=== PATIENT | male | born 1970 | race Caucasian/White ===

== ENCOUNTER 2020-10-27 04:11 | Outpatient (CLI) | payer OTHER, SELFPAY ==
[2020-10-27 16:48] LABS: ALT 37 U/L (16-63); AST 23 U/L (15-37); Albumin 4.1 g/dL (3.4-5.0); Alkaline Phosphatase 65 U/L (46-116); Anion Gap 8.4 mmol/L (3-11); BUN 20 mg/dL (7-18); Bilirubin, Total 0.2 mg/dL (0.2-1.0); CO2 28.6 mmol/L (21.0-32.0); Calculated LDL 101 mg/dL (<100); Chloride 103 mmol/L (98-107); Cholesterol 181 mg/dL (<200); Glucose 109 mg/dL (74-106); HDL Cholesterol 56 mg/dL (40-60); Potassium 3.9 mmol/L (3.5-5.1); Sodium 140 mmol/L (136-145); Total Protein 7.1 g/dL (6.4-8.2); Triglyceride 120 mg/dL (<150)
[2020-10-28 11:13] LABS: Lyme Ab w Rflx to Lyme Confirm Negative (Negative)
[2020-10-29 18:41] LABS: Anaplasma phagocytophilum Negative (Negative); B. miyamotoi PCR Negative (Negative); Babesia divergens/MO-1 Negative (Negative); Babesia duncani Negative (Negative); Babesia microti Negative (Negative); Ehrlichia chaffeensis Negative (Negative); Ehrlichia ewingii/canis Negative (Negative); Ehrlichia muris eauclairensis Negative (Negative)
== END 2020-10-27 04:12 | disposition home or self-care (01) ==
LOC: LBO 04:11
PROVIDERS: PCP Nurse Practitioner Family; Visit Provider Nurse Practitioner Family
DX: M25.59 Pain in other specified joint (principal); M25.571 Pain in right ankle and joints of right foot; Z13.220 Encounter for screening for lipoid disorders; Z13.1 Encounter for screening for diabetes mellitus
CPT/HCPCS: 36415; 80053; 80061; 87798; 83036; 86618

== ENCOUNTER 2021-03-30 06:26 | Emergency (ER) | payer OTHER, SELFPAY ==
[2021-03-30 06:31] VITALS: BP 132/83; PULSE 84; RESP 18; TEMP 37.2; O2SAT 96
--- NOTE | 2021-03-30 06:41 | ED.GENADUL_ITS ---
Discharge Plan Disposition Patient Disposition: HOME Condition: Stable Discharge Details Clinical Impression: Cough, Upper respiratory infection Primary Care Provider: Ciro Epps ED Provider: Andrea Mitchell Home Meds and New Rx's Prescriptions: New amoxicillin-pot clavulanate [Augmentin] 875-125 mg tablet 1 tab PO BID Qty: 14 RF: 0 Discharge Instructions Instructions: Upper Respiratory Infection (ED) Additional Instructions: continue to drink plenty of fluids you can take 1000mg tylenol and 600mg ibuprofen efvery 6 hours as needed and you can also try over the counter mucinex and benadryl follow up with your primary care provider within a week if symptoms continue if you feel more ill, have worsening trouble breathing or worsening weakness return to the emergency department Stand Alone Forms: PENDING COVID-19 TESTING Medical Decision Making 50 yo male with no chronic medical problems who denies smoking, alcohol or drug use comes in with cough and facial pressure for over a week. He states when this started he had subjective fevers and chills and had a negative covid pcr test. Fever he felt has resolved but he still has a dry cough and facial pressure. No recent travel, no rashes, denies any gi symptoms. He is stable on arrival and appears well speaking in full sentences. He has clear lungs bilaterally, no murmurs, no rashes or lesions, no meninismus, soft nontender abdomen. Does have some tenderness with percussion over the maxillary sinuses. His symptoms seem consistent with either uri vs bronchitis vs sinusitis. Given over a week of symptoms will start augmentin and also obtain another covid test. He has clear lungs, no hypoxia and well appearance so doubt pneumonia or sepsis and do not feel labs or imaging indicated. He is stable for outpatient management, advised to f/u with pcp and return precautions given Differential Diagnosis Differential Diagnosis: sinusitis, cap, bronchitis, covid HPI General Mode of arrival: ambulatory . Date/Time Provider Initiated Documentation: 03/30/21 06:27 . Limitations to Documentation: no limitations . Information obtained by: patient . History of Present Illness 50 year old M presents to the emergency department with the chief complaint of cough, described as moderate, Patient started experiencing this day(s) (8) and it has been intermittent. No relieving factors improve symptom(s), No exacerbating factors reported . Patient notes denies nausea/vomiting and rash. Patient did receive the following treatments prior to arrival, none Related Data Home Medications Medication Instructions Recorded Confirmed amoxicillin-pot clavulanate 1 tab PO BID #14 tab 03/30/21 [Augmentin] Previous Rx's Medication Instructions Recorded amoxicillin-pot clavulanate 1 tab PO BID #14 tab 03/30/21 [Augmentin] Allergies Allergy/AdvReac Type Severity Reaction Status Date / Time shrimp Allergy Severe numbness Verified 02/11/21 14:42 in tongue and lips, nausea General Stated Complaint: RespSymp MONSERRAT: 4 Review of Systems All systems reviewed & are unremarkable except as noted in HPI and below Constitutional Constitutional: Denies weakness Cardiovascular Cardiovascular: Denies chest pain Gastrointestinal Gastrointestinal: Denies abdominal pain, Denies nausea and Denies vomiting Musculoskeletal Musculoskeletal: Denies joint swelling Neurologic Neurologic: Denies weakness PFSH All Active Problems (Updated 03/30/21 @ 06:47 by Andrea Mitchell MD) Cough (Acute) Upper respiratory infection (Acute) Colon cancer screening (Acute) Thumb pain (Acute) Plantar fasciitis, bilateral (Acute) Lower back pain (Acute) Angina bullosa hemorrhagica (Chronic) Surgical History KNEE SURGERY (~2003) Family History Mother Essential hypertension Hyperlipidemia Neoplasm Breast Father Essential hypertension Hyperlipidemia Sister Substance abuse Grandfather No problems noted. Grandfather Essential hypertension Heart disease Hyperlipidemia Grandmother No problems noted. Grandmother No problems noted. Social History Smoking/Tobacco Use Status: Never Smoking risk assessment performed?: Yes Alcohol Intake: never Drug use: Never Substance use type: does not use Do you feel safe at home: Yes Do you feel safe in your relationship?: Yes Exam Const General: no acute distress Orientation: alert HENKS Head: normal to inspection Ears: external ears normal General nose exam: external nose normal Mouth: moist mucous membranes Eyes General: appearance normal, both eyes and all related structures Neck Neck: normal visual inspection Resp Effort & Inspection: normal respiratory effort and able to speak in complete sentences Cardio Rate: regular rate GI Palpation: soft and nontender Skin General skin exam: no rashes or lesions noted Neuro General: patient alert and patient oriented x3 Extrem General: normal to inspection Psych Mental Status: mental status grossly normal Course Vital Signs Vital signs: Vital Signs Temperature 37.2 C 03/30/21 06:31 Pulse 84 03/30/21 06:31 Respiratory Rate 18 03/30/21 06:31 Blood Pressure 132/83 03/30/21 06:31 Pulse Oximetry 96 03/30/21 06:31 Temperature 37.2 C 03/30/21 06:31 Temperature Source Temporal Artery Scan 03/30/21 06:31 Pulse 84 03/30/21 06:31 Respiratory Rate 18 03/30/21 06:31 Respiratory Effort Short of Breath 03/30/21 06:34 Respiratory Depth Normal 03/30/21 06:34 Blood Pressure 132/83 03/30/21 06:31 Blood Pressure Position Supine 03/30/21 06:31 Pulse Oximetry 96 03/30/21 06:31 Oxygen Delivery Method Room Air 03/30/21 06:31 Oxygen Flow Rate 0 03/30/21 06:31 Pain Level 2 03/30/21 06:31
[2021-03-30] MEDS: Amoxicillin 875/Clav. 125 TAB PO (06:50)
[2021-03-31 15:59] LABS: COVID-19 RT-PCR UVMMC Result Positive (Negative)
--- NOTE | 2021-03-31 16:26 | W.ED.FU ---
Pt called on number listed and message left to call the ED for his Covid results. His Covid test resulted positive today. He was advised to call the ED for his results.
== END 2021-03-30 06:54 | disposition home or self-care (01) ==
PROVIDERS: Emergency Provider Emergency Medicine; PCP Nurse Practitioner Family
DX: U07.1 COVID-19 (principal)
CPT/HCPCS: 99283; U0003

== ENCOUNTER 2021-04-01 16:39 | Inpatient (IN) | payer OTHER, SELFPAY ==
[2021-04-01] VITALS (51 sets, daily range): BP systolic 95–127; BP diastolic 46–76; PULSE 68–127; RESP 9–33; TEMP 36.4–38.2; O2SAT 87–95
--- NOTE | 2021-04-01 16:30 | RT.EKG_ITS ---
APPROVED REPORT Exam: Resting ECG Reason for Exam: SOB Patient Location: E HR:109 bpm ECG Measurements Heart Rate 109 AXIS RI 120 P 61 QRSd 82 QRS 36 QT 303 T 30 QTc 408 Conclusion Sinus tachycardia...rate> 99. Sinus. No STEMI. I have reviewed and interpreted ECG and agree with software generated interpretation.
--- NOTE | 2021-04-01 17:09 | W.ED.GENAD ---
Discharge Plan Disposition Patient Disposition: [facility] INPATIENT Condition: Stable Discharge Details Clinical Impression: Pneumonia due to COVID-19 virus, Hypoxia, Requires supplemental oxygen Admit Date/Time: 04/01/21 19:37 Admit Provider: Andres Hummel Attending Provider: Andres Hummel Primary Care Provider: Ciro Epps ED Provider: Dunia Sellers Discharge Data Discharge Date/Time-TO BE ENTERED AT DEPARTURE: 04/01/21 21:05 Medical Decision Making 50 year-old male who is unvaccinated for Covid diagnosed with Covid yesterday presents with 1 week of nausea, headache, cough, fatigue now with worsening shortness of breath since yesterday. Heart rate 110s. Temperature 100.8 and oxygen saturation 87% on room air on arrival. Patient appears to have mild labored breathing and speaking in 3-4 word sentences. Oxygen increased to 92% on 1 L. Patient has scattered wheezing and minimal rhonchi. Consider Covid pneumonia. Will likely plan for admission as he is requiring supplemental oxygen. Will start with neb treatment, IV steroids, fluids, Toradol and obtain screening labs of portable chest x-ray. Labs and imaging reviewed. White blood cell count 9. Sodium 134. Troponin negative. Chest x-ray notes bilateral patchy airspace opacities, worse in the right lung base. Will treat for possible bacterial pneumonia as he was noted to have a fever with more significant consolidation in the right lung base. Patient reassessed and he feels that he is breathing better with supplemental oxygen but still with some headache. He appears nontoxic and no meningeal signs. Oxygen saturation 92% on 1 L. Will admit for observation and IV antiviral treatment, IV antibiotics, and need for supplemental oxygen in the setting of COVID-19 and pneumonia. Case discussed with hospitalist who accepts patient for admission. Medical Records Medical records reviewed: Yes I reviewed the patient's medical records. Imaging Data Radiologic Study: Radiologist's impression: XR Chest Exam date and time: 04/01/2021 5:29 PM Age: 50 years old Clinical indication: Shortness of breath TECHNIQUE: Imaging protocol: XR of the chest. Views: 1 view. COMPARISON: CR LEFT SHOULDER COMPLETE 09/07/2017 3:19 PM FINDINGS: Lungs: Patchy peripheral airspace opacities in the right lung base. This is seen to a lesser extent in the left lung as well. Pleural spaces: Unremarkable. No pleural effusion. No pneumothorax. Heart/Mediastinum: Unremarkable. No cardiomegaly. Bones/joints: Unremarkable. IMPRESSION: Patchy airspace opacities. This consistent with pneumonia in the correct clinical setting. Covid pneumonia is not excluded. Lab Data Lab results reviewed: Yes I reviewed the patient's lab results. Labs: Laboratory Tests Range/Units 04/01/21 04/01/21 16:50 16:50 WBC (4.4-10.8) 10^3/uL 9.16 RBC (4.36-5.78) 10^6/uL 4.68 Hgb (13.5-17.5) g/dL 14.6 Hct (40.0-50.0) % 43.2 MCV (80-95) fL 92.3 MCH (27.0-33.0) pg 31.2 MCHC (32.0-36.0) % 33.8 RDW (11.8-14.1) % 11.5 L Plt Count (130-400) 10^3/uL 139 MPV (8.0-11.0) fL 10.9 Immature Gran % 0.7 Neutrophils % 91.0 Lymphocytes % 5.3 Monocytes % 2.9 Eosinophils % 0.0 Basophils % 0.1 Nucleated RBC % % 0 Absolute Neutrophils (1.2-6.7) 10^3/uL 8.33 H Absolute Lymphocytes (1.2-3.4) 10^3/uL 0.49 L Absolute Monocytes (0.1-0.8) 10^3/uL 0.27 Absolute Eosinophils (0.0-0.7) 10^3/uL 0.00 Absolute Basophils (0.0-0.2) 10^3/uL 0.01 Sodium (136-145) mmol/L 134 L Potassium (3.5-5.1) mmol/L 3.7 Chloride (98-107) mmol/L 99 Carbon Dioxide (21.0-32.0) mmol/L 24.9 Anion Gap (3-11) mmol/L 10.1 BUN (7-18) mg/dL 13 Creatinine (0.70-1.30) mg/dL 1.2 Estimated GFR/1.73 m2 (mL/min/1.73m2) >= 60.00 Glucose (74-106) mg/dL 103 Calcium (8.5-10.1) mg/dL 8.1 L Magnesium (1.8-2.4) mg/dL 1.7 L Total Bilirubin (0.2-1.0) mg/dL 0.3 AST (15-37) U/L 31 ALT (16-63) U/L 28 Alkaline Phosphatase (46-116) U/L 49 Troponin I (<or=60) ng/L < 50 Total Protein (6.4-8.2) g/dL 7.3 Albumin (3.4-5.0) g/dL 3.3 L ECG Data Attestation: I personally reviewed and interpreted this ECG (s) as follows: Interpretation: Rate of 109, sinus, no acute ST elevation or depression. KS 120. QTc 408. HPI General Mode of arrival: ambulatory. Date/Time Provider Initiated Documentation: 04/01/21 17:07. Limitations to Documentation: no limitations. Information obtained by: patient. HPI Narrative: Patient is a 50-year-old male with no significant past medical history diagnosed with Covid yesterday presents for fatigue and headache for the past week, now with worsening nausea, shortness of breath and body aches since yesterday. He has felt warm but denies any known fever. He also admits to mainly a dry cough, some loss of sense of smell and taste and decreased appetite. 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 Patient states he is not vaccinated as he thought he could obtain natural antibodies from catching Covid at some point. He states he has a lot of unvaccinated friends who have been diagnosed with covid and did fine with it but he states that he has never felt as bad as I do now and I didn't know it would be this bad. He took Tylenol earlier today. Related Data Home Medications Medication Instructions Recorded Confirmed amoxicillin-pot clavulanate 1 tab PO BID #14 tab 03/30/21 04/01/21 [Augmentin] acetaminophen 650 mg PO PRN PRN 04/01/21 04/01/21 ibuprofen 400 mg PO PRN PRN 04/01/21 04/01/21 Previous Rx's Medication Instructions Recorded amoxicillin-pot clavulanate 1 tab PO BID #14 tab 03/30/21 [Augmentin] Allergies Allergy/AdvReac Type Severity Reaction Status Date / Time shrimp Allergy Severe numbness Verified 04/01/21 16:51 in tongue and lips, nausea General Stated Complaint: RespSymp MONSERRAT: 2 Review of Systems All systems reviewed & are unremarkable except as noted in HPI and below Constitutional Constitutional: Reports as per HPI, Reports body ache(s), Denies chills, Reports fatigue, Denies fever(s), Reports headache(s), Reports malaise and Reports poor appetite Eyes Eyes: Denies blurry vision ENT Ears, Nose, Mouth, and Throat: Denies dizziness, Reports headache(s), Denies sore throat and Denies throat swelling Cardiovascular Cardiovascular: Denies chest pain and Reports dyspnea Respiratory Respiratory: Reports cough and Reports dyspnea Gastrointestinal Gastrointestinal: Denies abdominal pain, Denies diarrhea, Reports nausea and Denies vomiting Genitourinary Genitourinary: Denies hematuria and Denies dysuria Musculoskeletal Musculoskeletal: Denies back pain and Denies numbness Integumentary/Breasts Skin/Breast: Denies lesions and Denies rash Neurologic Neurologic: Denies dizziness, Reports headache(s), Denies localized weakness and Denies numbness Endocrine Endocrine: Reports fatigue Allergic/Immunologic Allergic/Immunologic: Denies throat swelling PFSH All Active Problems (Updated 04/02/21 @ 08:21 by Dunia Sellers DO) Pneumonia due to COVID-19 virus (Acute) Hypoxia (Acute) Requires supplemental oxygen (Acute) Cough (Acute) Upper respiratory infection (Acute) Plantar fasciitis, bilateral (Acute) Lower back pain (Acute) Angina bullosa hemorrhagica (Chronic) Surgical History KNEE SURGERY (~2003) Family History Mother Essential hypertension Hyperlipidemia Neoplasm Breast Father Essential hypertension Hyperlipidemia Multiple myeloma Sister Substance abuse Grandfather Essential hypertension Heart disease Hyperlipidemia Social History Smoking/Tobacco Use Status: Former Tobacco Use Smoking risk assessment performed?: Yes Alcohol Intake: never Drug use: Never Substance use type: does not use Do you feel safe at home: Yes Do you feel safe in your relationship?: Yes Exam Const General: cooperative and no acute distress HENMT Head: normal to inspection Face and sinus: normal facial exam Eyes General: appearance normal, both eyes and all related structures EOM: EOM intact bilaterally Neck Neck: normal visual inspection and No submandibular swelling Lymphatic: no lymphadenopathy noted Chest Chest: normal inspection of the chest and no tenderness Resp Effort & Inspection: normal respiratory effort and able to speak in complete sentences Auscultation: rhonchi and wheezes scattered wheezes Cardio Rate: regular rate Rhythm: regular rhythm GI Inspection: normal to inspection Palpation: soft, not firm, not rigid and nontender Auscultation: normal bowel sounds Back/Spine/Pelvis Thoracic/Lumbar Spine: thoracic and lumbar spine normal to inspection Skin General skin exam: no rashes or lesions noted Neuro General: patient alert, patient awake and patient oriented x3 Cognition: normal cognition Speech: speech normal Motor: muscle tone normal throughout Sensory Exam: no sensory deficits noted Extrem General: normal to inspection, full ROM, capillary refill normal, no calf tenderness bilaterally and no edema Psych Appearance: grossly normal Mental Status: mental status grossly normal Speech and Movement: speech and movement normal Affect: normal affect Course Vital Signs Vital signs: Vital Signs Temperature 100.8 F H 04/01/21 16:47 Pulse 110 H 04/01/21 16:47 Respiratory Rate 18 04/01/21 16:47 Blood Pressure 127/72 04/01/21 16:47 Pulse Oximetry 87 L 04/01/21 16:47 Temperature 100.8 F H 04/01/21 16:47 Temperature Source Temporal Artery Scan 04/01/21 16:47 Pulse 111 H 04/01/21 16:48 Pulse 111 H 04/01/21 17:00 Respiratory Rate 24 04/01/21 17:00 Respiratory Effort Incrsd Work of Breathing 04/01/21 17:00 Blood Pressure 127/72 04/01/21 16:48 Blood Pressure Mean 80 04/01/21 16:48 Blood Pressure Position Sitting 04/01/21 16:47 Pulse Oximetry 94 04/01/21 17:00 Oxygen Delivery Method Nasal Cannula 04/01/21 16:58 Oxygen Flow Rate 2 04/01/21 16:58
--- NOTE | 2021-04-01 17:15 | DI.RAD_ITS ---
Exam(s) XR PORTABLE CHEST AP EXAM: XR PORTABLE CHEST AP CLINICAL HISTORY: cough, sob, + covid, r/o acute disease TECHNIQUE: 2D digital imaging was performed of the chest. One image was obtained. An AP view was ob tained. COMPARISON: No priors for comparison. FINDINGS: MEDIASTINUM: Normal. HEART: Normal. PULMONARY VASCULATURE: Normal. LUNGS: There are are bilateral airspace opacities, greater on the right. PLEURAL SPACE: No pleural effusion or pneumothorax. BONE:Within normal limits for the patient's age. OTHER FINDINGS:Normal. IMPRESSION: Bilateral airspace opacities. The findings are consistent with pneumonia. Atypical/viral pneumonia should be considered. COVID-19 pneumonia may have this appearance. DATA REPOSITORY: RADIATION DOSE DELIVERED:
[2021-04-01 17:44] LABS: Abs Immature Grans 0.06 10^3/uL (0.0-0.06); Absolute Basophil Count 0.01 10^3/uL (0.0-0.2); Absolute Lymphocyte Count 0.49 10^3/uL (1.2-3.4); Absolute Monocyte Count 0.27 10^3/uL (0.1-0.8); Absolute Neutrophil Count 8.33 10^3/uL (1.2-6.7); Basophils % 0.1; HCT 43.2 % (40.0-50.0); HGB 14.6 g/dL (13.5-17.5); Immature Grans % 0.7; Lymphocytes % 5.3; MCH 31.2 pg (27.0-33.0); MCHC 33.8 % (32.0-36.0); MCV 92.3 fL (80-95); MPV 10.9 fL (8.0-11.0); Monocytes % 2.9; Nucleated RBC 0 %; Platelet Count 139 10^3/uL (130-400); RBC 4.68 10^6/uL (4.36-5.78); RDW 11.5 % (11.8-14.1); RDW-SD 38.9 fL; WBC 9.16 10^3/uL (4.4-10.8)
[2021-04-01] MEDS: Normal Saline 1,000 ML 1000 ML IV (17:45)
[2021-04-01] MEDS: methylPREDNISolone SUCC 125 MG VIAL IVP (17:48)
[2021-04-01] MEDS: Ketorolac 60 MG/2 ML VIAL IM (17:49)
[2021-04-01] MEDS: Ondansetron 4 MG/2 ML VIAL IVP (17:51)
[2021-04-01] MEDS: Albuterol/Ipratropium 3 ML UPD VIAL UPD (17:52)
--- NOTE | 2021-04-01 18:10 | DI.VRAD_ITS ---
PROCEDURE INFORMATION: Exam: XR Chest Exam date and time: 04/01/2021 5:29 PM Age: 50 years old Clinical indication: Shortness of breath TECHNIQUE: Imaging protocol: XR of the chest. Views: 1 view. COMPARISON: CR LEFT SHOULDER COMPLETE 09/07/2017 3:19 PM FINDINGS: Lungs: Patchy peripheral airspace opacities in the right lung base. This is seen to a lesser extent in the left lung as well. Pleural spaces: Unremarkable. No pleural effusion. No pneumothorax. Heart/Mediastinum: Unremarkable. No cardiomegaly. Bones/joints: Unremarkable. IMPRESSION: Patchy airspace opacities. This consistent with pneumonia in the correct clinical setting. Covid pneumonia is not excluded. Dictated and Authenticated by: Nelson Su MD. Ordering:LOBITO Duque MD
[2021-04-01 18:15] LABS: ALT 28 U/L (16-63); AST 31 U/L (15-37); Albumin 3.3 g/dL (3.4-5.0); Alkaline Phosphatase 49 U/L (46-116); Anion Gap 10.1 mmol/L (3-11); BUN 13 mg/dL (7-18); Bilirubin, Total 0.3 mg/dL (0.2-1.0); CO2 24.9 mmol/L (21.0-32.0); CREATININE 1.2 mg/dL (0.70-1.30); Calcium 8.1 mg/dL (8.5-10.1); Chloride 99 mmol/L (98-107); Glucose 103 mg/dL (74-106); Magnesium 1.7 mg/dL (1.8-2.4); Potassium 3.7 mmol/L (3.5-5.1); Sodium 134 mmol/L (136-145); Total Protein 7.3 g/dL (6.4-8.2); Troponin I < 50 ng/L (<or=60)
--- NOTE | 2021-04-01 20:06 | HPE_ITS ---
Date of service: 04/01/21 Time of Service: 20:06 Assessment and Plan Assessment and plan (1) Pneumonia due to COVID-19 virus: Status: Acute Assessment and plan: hospitalize for hypoxemia and COVID-19 pneumonia; treat w/ Remdesivir and decadron, vitamin C, vitamin D, zinc, atorvastatin, therapeutic lovenox, encourage use of IS, acapella and proning; check serial procalcitonin and if negative x 2 consider dc antibiotics (will cover w/ Ceftriaxone and doxycycline for now). History of Present Illness History of Present Illness Chief Complaint: shortness of breath, fever, COVID-19 positive Narrative: 50 yr old male who who has had fatigue and headaches and myalgias for past 2 weeks and was diagnosed w/ COVID-19 yesterday after initially testing negative last week. He now presents w/ worsening dyspnea, loss of appetite, nausea and worsening fatigue and now a fever 38.2 and non- productive cough. He is not vaccinated. On arrival to the ED he was tachypneic (33 bpm, speaking in 3 to 4 word sentences), tachycardic (110 bmp) and hypoxemic (SPO2 87% on RA). He was given a nebulizer treatment and placed on O2 per 1 lpm NC w/ SPO2 91%. CXR demonstrated diffuce bilateral alveolar infiltrates w/ more consolidation in the RLL. Labs were remarkable for nasal PCR from 2 days ago that is positive for SARS-COV2, CBC today that shows an absolute lymphocytopenia and CMP that is unremarkable. D-dimer, coags, CRP and procalcitonin and ferritin and type and screen, HIV and chronic hepatitis screen have not yet been done. Troponin I was normal and EKG showed sinus tachycardia w/out ischemic changes. Patient was treated w/ iv fluids and solumedrol and will receive paretenteral antibiotics (Ceftriaxone and doxycycline) for empiric treatment for concomitant bacterial pneumonia given the asymmetrical basilar infiltrates. Patient will be admitted to med/surg and started on Remdesivir and decadron (he already had solumedrol 125 mg ivp in the ER which should be more than the equivalent of 23 mg dexamethasone. He currently lives w/ his fiance who currently is not symptomatic. 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 They often do not mask and he says that while he does not recall any recent exposure's to COVID-19 he states that there have been some cases at his employment. Review of Systems All systems reviewed & are unremarkable except as noted in HPI and below Constitutional Constitutional: Reports fatigue, Reports headache(s), Reports lethargy and Reports poor appetite Eyes Eyes: Reports system reviewed and no additional complaints, except as documented ENT Ears, Nose, Mouth, and Throat: Reports system reviewed and no additional complaints, except as documented and Reports headache(s) Cardiovascular Cardiovascular: Reports dyspnea on exertion Respiratory Respiratory: Reports cough, Denies hemoptysis, Denies excessive phlegm production and Reports dyspnea on exertion Gastrointestinal Gastrointestinal: Denies diarrhea, Reports nausea and Denies vomiting Genitourinary Genitourinary: Reports system reviewed and no additional complaints, except as documented Musculoskeletal Musculoskeletal: Reports other (diffuse myalgia) Integumentary/Breasts Skin/Breast: Reports system reviewed and no additional complaints, except as documented Neurologic Neurologic: Reports headache(s) Endocrine Endocrine: Reports fatigue Hematologic/Lymphatic Hematologic/Lymphatic: Reports system reviewed and no additional complaints, except as documented Allergic/Immunologic Allergic/Immunologic: Reports system reviewed and no additional complaints, except as documented PFSH All Active Problems Cough (Acute) Upper respiratory infection (Acute) Pneumonia due to COVID-19 virus (Acute) Hypoxia (Acute) Requires supplemental oxygen (Acute) Plantar fasciitis, bilateral (Acute) Lower back pain (Acute) Angina bullosa hemorrhagica (Chronic) Surgical History KNEE SURGERY (~2003) Family History Mother Essential hypertension Hyperlipidemia Neoplasm Breast Father Essential hypertension Hyperlipidemia Multiple myeloma Sister Substance abuse Grandfather Essential hypertension Heart disease Hyperlipidemia Social History Smoking/Tobacco Use Status: Former Tobacco Use Smoking risk assessment performed?: Yes Alcohol Intake: never Drug use: Never Substance use type: does not use Do you feel safe at home: Yes Do you feel safe in your relationship?: Yes Meds Allergies and Home Medications Allergies Allergy/AdvReac Type Severity Reaction Status Date / Time shrimp Allergy Severe numbness Verified 04/01/21 16:51 in tongue and lips, nausea Home Medications Medication Instructions Recorded Confirmed Type amoxicillin-pot clavulanate 1 tab PO BID #14 tab 03/30/21 04/01/21 Rx [Augmentin] acetaminophen 650 mg PO PRN PRN 04/01/21 04/01/21 History ibuprofen 400 mg PO PRN PRN 04/01/21 04/01/21 History Exam Narrative Exam Narrative: Thin middle-aged white male lying in bed in no acute respiratory distress not using accessory respiratory muscles able to speak to me in full paragraphs. HEENT is unremarkable Neck supple nontender no JVD normal carotid pulses no bruits no thyromegaly Lungs are clear anteriorly posteriorly has some bibasilar fine rales no rhonchi or wheezing Heart is regular rate rhythm to slightly tachycardic without murmur rub or gallop Abdomen is soft nontender normal bowel sounds no organomegaly no bruits Extremities without peripheral cyanosis or edema normal range of motion and strength in both upper and lower extremities Neuro exam grossly intact no focal deficits. Results Labs Result diagrams: 04/01/21 16:50 04/01/21 16:50 Labs: Laboratory Results - last 24 hr 04/01/21 04/01/21 16:50 16:50 WBC 9.16 RBC 4.68 Hgb 14.6 Hct 43.2 MCV 92.3 MCH 31.2 MCHC 33.8 RDW 11.5 L Plt Count 139 MPV 10.9 Immature Gran % 0.7 Neutrophils % 91.0 Lymphocytes % 5.3 Monocytes % 2.9 Eosinophils % 0.0 Basophils % 0.1 Nucleated RBC % 0 Absolute Neutrophils 8.33 H Absolute Lymphocytes 0.49 L Absolute Monocytes 0.27 Absolute Eosinophils 0.00 Absolute Basophils 0.01 Sodium 134 L Potassium 3.7 Chloride 99 Carbon Dioxide 24.9 Anion Gap 10.1 BUN 13 Creatinine 1.2 Estimated GFR/1.73 m2 >= 60.00 Glucose 103 Calcium 8.1 L Magnesium 1.7 L Total Bilirubin 0.3 AST 31 ALT 28 Alkaline Phosphatase 49 Troponin I < 50 Total Protein 7.3 Albumin 3.3 L Last Vital Signs Temp 38.2 C H 04/01/21 17:49 Pulse 98 H 04/01/21 19:16 Resp 19 04/01/21 19:20 BP 102/50 L 04/01/21 19:16 Pulse Ox 92 04/01/21 19:20
[2021-04-01] MEDS: cefTRIAXone 1 GM/50 ML BAG IVPB (20:30)
[2021-04-01] MEDS: ACETAMINOPHEN 1,000 MG/100 ML BTL 400 MG IVPB (20:30)
[2021-04-01 20:37] LABS: Lactate 0.9 mmol/L (0.6-1.4)
[2021-04-01 20:58] LABS: INR 1.1 (0.9-1.1)
[2021-04-01 21:19] LABS: Creatine Kinase 95 U/L (39-308); LDH 325 U/L (85-227); Troponin I < 50 ng/L (<or=60)
[2021-04-01 21:23] LABS: D-Dimer 1261 ng/mlFEU (<500); Procalcitonin 5.3 ng/mL
[2021-04-01 22:13] LABS: Ferritin 1906 ng/mL (26-388)
[2021-04-01] MEDS: REMDESIVIR 200 MG in Normal Saline 250 ML 250 MG IVPB (23:04)
[2021-04-01] MEDS: Water,Injection,Sterile 10 ML VIAL ×2 (23:06→23:07)
[2021-04-01] MEDS: Normal Saline 500 ML 30 ML IV (23:06)
[2021-04-01] MEDS: Normal Saline Flush 10 ML SYR IVP (23:09)
[2021-04-01] MEDS: Furosemide 20 MG TAB PO (23:12)
[2021-04-01] MEDS: Ascorbic Acid 500 MG TAB 1000 MG PO (23:14)
[2021-04-01] MEDS: Famotidine 20 MG TAB PO (23:14)
[2021-04-01] MEDS: Atorvastatin 40 MG TAB PO (23:15)
[2021-04-01] MEDS: Enoxaparin 80 MG/0.8 ML SYR SC (23:20)
[2021-04-01] MEDS: AZITHROMYCIN 500 MG in Normal Saline 250 ML 250 MG IVPB (23:55)
[2021-04-02] VITALS (11 sets, daily range): BP systolic 90–116; BP diastolic 54–78; PULSE 52–83; RESP 12–18; TEMP 35.9–37.6; O2SAT 92–95
[2021-04-02] MEDS: DOXYCYCLINE 100 MG in Normal Saline 100 ML IVPB ×3 (01:17→23:44)
[2021-04-02 06:34] LABS: Abs Immature Grans 0.04 10^3/uL (0.0-0.06); Absolute Lymphocyte Count 0.34 10^3/uL (1.2-3.4); Absolute Monocyte Count 0.17 10^3/uL (0.1-0.8); Absolute Neutrophil Count 6.18 10^3/uL (1.2-6.7); HCT 41.3 % (40.0-50.0); HGB 13.7 g/dL (13.5-17.5); Immature Grans % 0.6; Lymphocytes % 5.1; MCH 31.1 pg (27.0-33.0); MCHC 33.2 % (32.0-36.0); MCV 93.7 fL (80-95); MPV 10.4 fL (8.0-11.0); Monocytes % 2.5; Neutrophils % 91.8; Nucleated RBC 0 %; Platelet Count 136 10^3/uL (130-400); RBC 4.41 10^6/uL (4.36-5.78); RDW 11.7 % (11.8-14.1); RDW-SD 40.6 fL; WBC 6.73 10^3/uL (4.4-10.8)
[2021-04-02 06:47] LABS: ALT 23 U/L (16-63); AST 29 U/L (15-37); Albumin 2.7 g/dL (3.4-5.0); Anion Gap 9.5 mmol/L (3-11); BUN 16 mg/dL (7-18); Bilirubin, Total 0.2 mg/dL (0.2-1.0); CO2 25.5 mmol/L (21.0-32.0); Chloride 106 mmol/L (98-107); Glucose 164 mg/dL (74-106); Potassium 3.8 mmol/L (3.5-5.1); Sodium 141 mmol/L (136-145); Total Protein 6.5 g/dL (6.4-8.2)
[2021-04-02 06:49] LABS: Alkaline Phosphatase 45 U/L (46-116); C-Reactive Protein 16.48 mg/dL (0.0-0.3); Creatine Kinase 105 U/L (39-308); LDH 324 U/L (85-227)
[2021-04-02 07:02] LABS: D-Dimer 1026 ng/mlFEU (<500)
[2021-04-02 07:35] LABS: Ferritin 1867 ng/mL (26-388)
[2021-04-02] MEDS: Ascorbic Acid 500 MG TAB 1000 MG PO ×2 (08:09→20:27)
[2021-04-02] MEDS: Zinc Sulfate 220 MG TAB PO (08:09)
[2021-04-02] MEDS: Furosemide 20 MG TAB PO (08:09)
[2021-04-02] MEDS: Famotidine 20 MG TAB PO ×2 (08:09→20:26)
[2021-04-02] MEDS: Dexamethasone 10 MG/ML VIAL 6 MG IVP (08:10)
--- NOTE | 2021-04-02 08:55 | PDOC.CMIN ---
- If Service Date Differs Date of service: 04/02/21 Time of Service: 08:55 Care Management Initial Assess REASON FOR HOSPITALIZATION:: Covid-19 pneumonia PAST MEDICAL HISTORY/PAST SURGICAL HISTORY:: All Active Problems . Cough (Acute). Upper respiratory infection (Acute). Pneumonia due to COVID-19 virus (Acute). Hypoxia (Acute). Requires supplemental oxygen (Acute). Plantar fasciitis, bilateral (Acute). Lower back pain (Acute). Angina bullosa hemorrhagica (Chronic). Surgical History . KNEE SURGERY (~2003) PREVIOUS FUNCTIONAL STATUS/SOCIAL/FAMILY SUPPORTS:: Kash lives in [place] with his Kayla Crawford. He works at a local [employer]. He drives and is independent at baseline. CURRENT FUNCTIONAL STATUS:: CM spoke with Kash via phone due to covid precautions. Kash shares that hes doing well and has been up independently in his room. He is proning and using his IS and Acapella as directed. Kash has no needs at this time. He has a phone and TV in his room. ADVANCE DIRECTIVES:: None Has patient been provided with info about the portal/API?: Yes Did the patient sign up for the portal?: Yes (Prior to admission) CODE STATUS:: Full Code INSURANCE COVERAGE / FINANCIAL ISSUES:: [employer] CURRENT HOME/COMMUNITY SERVICES/EQUIPMENT:: None PRIMARY CARE PHYSICIAN:: Ciro Epps PATIENT/FAMILY EDUCATION NEEDS:: Review discharge instruction, limitations and plan to follow up with community providers. ask me three. TRANSPORTATION:: via private vehicle with family. PLAN:: Kash requires close monitoring and treatment for Covid-19 and pneumonia. Anticipate he will discharge home with no new services when medically ready. He will transport via private vehicle with family. He will follow up with discharge plan of care and community providers. CM will support discharge planning needs.
[2021-04-02] MEDS: Cholecalciferol (Vitamin D3) 1,000 UNIT TAB 2000 UNITS PO (10:17)
[2021-04-02] MEDS: Enoxaparin 80 MG/0.8 ML SYR SC ×2 (10:17→22:02)
--- NOTE | 2021-04-02 10:23 | W.PM.PROGNOT ---
Date of Service Date of service: 04/02/21 Time of Service: 10:00 Assessment and Plan Assessment and plan (1) Pneumonia due to COVID-19 virus: Start date: 04/02/21 Start time: 10:00 Status: Acute Assessment and plan: treat w/ Remdesivir and decadron, vitamin C, vitamin D, zinc, atorvastatin, therapeutic lovenox, continue to encourage use of IS, acapella and proning; Procal 5.3 Day 2 ceftriaxone and doxy, patient states feeling better. (2) Hypoxia: Start date: 04/02/21 Start time: 10:00 Status: Acute Assessment and plan: Currently requiring 2 L as above (3) Cough: Start date: 04/02/21 Start time: 10:00 Status: Acute Assessment and plan: improving as above (4) DVT prophylaxis: Start date: 04/02/21 Start time: 10:00 Status: Acute Assessment and plan: subcu enoxaparin (5) Discharge planning issues: Start date: 04/02/21 Start time: 10:00 Status: Acute Assessment and plan: Home when medically ready discussed with Dr. Grigsby Subjective Subjective Patient reports: other Interval history since last seen: Feels that he is improving breathing tay. He has been getting out of bed ambulating around room, he does drop saturation when ambulating but recovers quickly. he is currently on 2 L nasal cannula. Continue to prone use IS and ambulate around room as much as possible. Exam Narrative Exam Narrative: Thin middle-aged white male lying in bed in no acute respiratory distress not using accessory respiratory muscles able to speak to me in full paragraphs. HEENT is unremarkable Neck supple nontender no JVD normal carotid pulses no bruits no thyromegaly Lungs are clear anteriorly posteriorly has some bibasilar fine rales no rhonchi or wheezing Heart is regular rate rhythm Abdomen is soft nontender normal bowel sounds no organomegaly no bruits Extremities without peripheral cyanosis or edema normal range of motion and strength in both upper and lower extremities Neuro exam grossly intact no focal deficits. Objective Last Vital Signs Temp 35.9 C L 04/02/21 10:18 Pulse 74 04/02/21 10:18 Resp 18 04/02/21 10:18 BP 103/73 04/02/21 10:18 Pulse Ox 92 04/02/21 10:18 Laboratory Results - last 24 hr 04/01/21 04/01/21 04/01/21 16:50 16:50 20:25 WBC 9.16 RBC 4.68 Hgb 14.6 Hct 43.2 MCV 92.3 MCH 31.2 MCHC 33.8 RDW 11.5 L Plt Count 139 MPV 10.9 Immature Gran % 0.7 Neutrophils % 91.0 Lymphocytes % 5.3 Monocytes % 2.9 Eosinophils % 0.0 Basophils % 0.1 Nucleated RBC % 0 Absolute Neutrophils 8.33 H Absolute Lymphocytes 0.49 L Absolute Monocytes 0.27 Absolute Eosinophils 0.00 Absolute Basophils 0.01 PT INR APTT D-Dimer VBG Lactate Sodium 134 L Potassium 3.7 Chloride 99 Carbon Dioxide 24.9 Anion Gap 10.1 BUN 13 Creatinine 1.2 Estimated GFR/1.73 m2 >= 60.00 Glucose 103 Calcium 8.1 L Magnesium 1.7 L Ferritin 1906 H Total Bilirubin 0.3 AST 31 ALT 28 Alkaline Phosphatase 49 Lactate Dehydrogenase Creatine Kinase Troponin I < 50 C-Reactive Protein Total Protein 7.3 Albumin 3.3 L Procalcitonin Patient ABO/Rh Antibody Screen 04/01/21 04/01/21 04/01/21 20:25 20:25 20:25 WBC RBC Hgb Hct MCV MCH MCHC RDW Plt Count MPV Immature Gran % Neutrophils % Lymphocytes % Monocytes % Eosinophils % Basophils % Nucleated RBC % Absolute Neutrophils Absolute Lymphocytes Absolute Monocytes Absolute Eosinophils Absolute Basophils PT INR APTT D-Dimer 1261 H VBG Lactate Sodium Potassium Chloride Carbon Dioxide Anion Gap BUN Creatinine Estimated GFR/1.73 m2 Glucose Calcium Magnesium Ferritin Total Bilirubin AST ALT Alkaline Phosphatase Lactate Dehydrogenase 325 H Creatine Kinase 95 Troponin I < 50 C-Reactive Protein Total Protein Albumin Procalcitonin Patient ABO/Rh AB Positive Antibody Screen NEGATIVE 04/01/21 04/01/21 04/01/21 20:25 20:25 20:25 WBC RBC Hgb Hct MCV MCH MCHC RDW Plt Count MPV Immature Gran % Neutrophils % Lymphocytes % Monocytes % Eosinophils % Basophils % Nucleated RBC % Absolute Neutrophils Absolute Lymphocytes Absolute Monocytes Absolute Eosinophils Absolute Basophils PT 11.0 INR 1.1 APTT 32.0 H D-Dimer VBG Lactate 0.9 Sodium Potassium Chloride Carbon Dioxide Anion Gap BUN Creatinine Estimated GFR/1.73 m2 Glucose Calcium Magnesium Ferritin Total Bilirubin AST ALT Alkaline Phosphatase Lactate Dehydrogenase Creatine Kinase Troponin I C-Reactive Protein Total Protein Albumin Procalcitonin 5.3 Patient ABO/Rh Antibody Screen 04/02/21 04/02/21 04/02/21 06:20 06:20 06:20 WBC 6.73 RBC 4.41 Hgb 13.7 Hct 41.3 MCV 93.7 MCH 31.1 MCHC 33.2 RDW 11.7 L Plt Count 136 MPV 10.4 Immature Gran % 0.6 Neutrophils % 91.8 Lymphocytes % 5.1 Monocytes % 2.5 Eosinophils % 0.0 Basophils % 0.0 Nucleated RBC % 0 Absolute Neutrophils 6.18 Absolute Lymphocytes 0.34 L Absolute Monocytes 0.17 Absolute Eosinophils 0.00 Absolute Basophils 0.00 PT INR APTT D-Dimer VBG Lactate Sodium 141 Potassium 3.8 Chloride 106 Carbon Dioxide 25.5 Anion Gap 9.5 BUN 16 Creatinine 1.0 Estimated GFR/1.73 m2 >= 60.00 Glucose 164 H Calcium 8.0 L Magnesium Ferritin 1867 H Total Bilirubin 0.2 AST 29 ALT 23 Alkaline Phosphatase 45 L Lactate Dehydrogenase 324 H Creatine Kinase 105 Troponin I C-Reactive Protein 16.48 H Total Protein 6.5 Albumin 2.7 L Procalcitonin Patient ABO/Rh Antibody Screen 04/02/21 06:20 WBC RBC Hgb Hct MCV MCH MCHC RDW Plt Count MPV Immature Gran % Neutrophils % Lymphocytes % Monocytes % Eosinophils % Basophils % Nucleated RBC % Absolute Neutrophils Absolute Lymphocytes Absolute Monocytes Absolute Eosinophils Absolute Basophils PT INR APTT D-Dimer 1026 H VBG Lactate Sodium Potassium Chloride Carbon Dioxide Anion Gap BUN Creatinine Estimated GFR/1.73 m2 Glucose Calcium Magnesium Ferritin Total Bilirubin AST ALT Alkaline Phosphatase Lactate Dehydrogenase Creatine Kinase Troponin I C-Reactive Protein Total Protein Albumin Procalcitonin Patient ABO/Rh Antibody Screen
[2021-04-02] MEDS: Magnesium Oxide 400 MG TAB 800 MG PO (11:56)
[2021-04-02 16:45] LABS: Fibrinogen 470 mg/dL (171-384)
[2021-04-02] MEDS: cefTRIAXone 1 GM/50 ML BAG IVPB (20:21)
[2021-04-02] MEDS: Acetaminophen 325 MG TAB PO (20:25)
[2021-04-02] MEDS: Atorvastatin 40 MG TAB PO (20:26)
[2021-04-02] MEDS: Normal Saline Flush 10 ML SYR IVP (20:28)
[2021-04-02] MEDS: Ipratropium/Albuterol 4 GM 120 PUFF INH IH (20:30)
[2021-04-03] VITALS (8 sets, daily range): BP systolic 95–116; BP diastolic 61–78; PULSE 44–95; RESP 16–26; TEMP 35.9–36.5; O2SAT 91–94
[2021-04-03 00:15] LABS: Legionella Ag Detection Urine Negative (Negative)
[2021-04-03 07:31] LABS: Abs Immature Grans 0.12 10^3/uL (0.0-0.06); Absolute Basophil Count 0.01 10^3/uL (0.0-0.2); Absolute Monocyte Count 0.77 10^3/uL (0.1-0.8); Basophils % 0.1; HCT 41.4 % (40.0-50.0); HGB 13.7 g/dL (13.5-17.5); Immature Grans % 0.8; Lymphocytes % 4.9; MCHC 33.1 % (32.0-36.0); MCV 93.7 fL (80-95); MPV 10.9 fL (8.0-11.0); Monocytes % 5.4; Neutrophils % 88.8; Nucleated RBC 0 %; Platelet Count 175 10^3/uL (130-400); RBC 4.42 10^6/uL (4.36-5.78); RDW-SD 41.9 fL
[2021-04-03 07:47] LABS: Anion Gap 7.8 mmol/L (3-11); BUN 22 mg/dL (7-18); CO2 26.2 mmol/L (21.0-32.0); CREATININE 0.9 mg/dL (0.70-1.30); Chloride 108 mmol/L (98-107); Glucose 129 mg/dL (74-106); Potassium 4.4 mmol/L (3.5-5.1); Sodium 142 mmol/L (136-145)
[2021-04-03 09:04] LABS: C-Reactive Protein 7.45 mg/dL (0.0-0.3)
[2021-04-03] MEDS: Dexamethasone 10 MG/ML VIAL 6 MG IVP (09:10)
[2021-04-03] MEDS: Zinc Sulfate 220 MG TAB PO (09:10)
[2021-04-03] MEDS: Normal Saline Flush 10 ML SYR IVP ×2 (09:10→21:58)
[2021-04-03] MEDS: Cholecalciferol (Vitamin D3) 1,000 UNIT TAB 2000 UNITS PO (09:11)
[2021-04-03] MEDS: Ascorbic Acid 500 MG TAB 1000 MG PO ×2 (09:11→20:55)
[2021-04-03] MEDS: Famotidine 20 MG TAB PO ×2 (09:11→20:59)
[2021-04-03] MEDS: Furosemide 20 MG TAB PO ×2 (09:11→18:14)
[2021-04-03] MEDS: Ipratropium/Albuterol 4 GM 120 PUFF INH IH ×4 (09:12→21:00)
--- NOTE | 2021-04-03 10:02 | PHACLINREV_ITS ---
Pharmacy Admission Review - Admission Clinical Review (Last Reviewed 04/01/21 @ 22:08 by Andres Hummel) Discharge planning issues (Acute) DVT prophylaxis (Acute) Pneumonia due to COVID-19 virus (Acute) Hypoxia (Acute) Requires supplemental oxygen (Acute) Cough (Acute) Pneumonia due to COVID-19 virus (Acute) shrimp Allergy (Severe, Verified 04/01/21 16:51) numbness in tongue and lips, nausea Resuscitation Status Full Code Height 6 ft Weight 80.8 kg - Renal Dosing Renal Dosing: BUN 22 mg/dL (7-18) H D 04/03/21 07:07 Creatinine 0.9 mg/dL (0.70-1.30) 04/03/21 07:07 Medications needing adjustments: Reviewed (Crcl ~107 mL/min current meds okay) - Anticoagulation Anticoagulation: Hgb 13.7 g/dL (13.5-17.5) 04/03/21 07:07 Hct 41.4 % (40.0-50.0) 04/03/21 07:07 Plt Count 175 10^3/uL (130-400) 04/03/21 07:07 INR 1.1 (0.9-1.1) 04/01/21 20:25 Creatinine 0.9 mg/dL (0.70-1.30) 04/03/21 07:07 DVT Prophylaxis: N/A Therapeutic Anticoagulation: Reviewed Medications: Enoxaparin (therapeutic dosing per most recent NIH COVID yoly delines) - Opiate Usage Evaluate Pain Scale/Pains Meds: N/A - Relevant Labs Sodium 142 mmol/L (136-145) 04/03/21 07:07 Potassium 4.4 mmol/L (3.5-5.1) 04/03/21 07:07 Chloride 108 mmol/L (98-107) H 04/03/21 07:07 Magnesium 1.7 mg/dL (1.8-2.4) L 04/01/21 16:50 C-Reactive Protein 7.45 mg/dL (0.0-0.3) H 04/03/21 07:07 Electrolytes, C-Reactive P, ESR: Reviewed (Mag was low April 01, PO replacement ordered yesterday. Has not been rechecked yet.) - DM Control DM Control: Glucose 129 mg/dL (74-106) H 04/03/21 07:07 Insulin Dosing: N/A (No DM noted in medical history, previous A1c 6.0 on 10/27/2020) - Heart Failure/N[place] Heart Failure/N[place]: Troponin I < 50 ng/L (<or=60) 04/01/21 20:25 EF%, RANDY's, B-Blockers, Diuretics: Reviewed - BP Control BP Control: Blood Pressure 95/61 Blood Pressure 108/68 Blood Pressure 99/65 If elevated: Intervened (BP has been low to normal most of admission so far. Currently has furosemide ordered (lungs sound wet in bases and is getting IV fluids via antibiotics per provider).) - Qtc Review If Elevated: N/A (QTc 408 on admission) - IV to PO Switch IV Medications: Reviewed - Home Meds Home Med List reviewed: Reviewed Relevent Home Meds Not ordered & why?: ibuprofen (PRN), augmentin (has IV abx ordered) - Current meds Current Medication Order Review: Intervened (Discontinued duplicate med orders.) - Comments Comments/Follow Ups: Watch BP, BP, mag, labs and for med changes. Antibiotic Activity - Pharmacy Antibiotic Review Pharmacy Antibiotic Activity: Reviewed, no change (ceftriaxone (day 3 starts this evening) and doxycycline (day 2). Initial procalcitonin was 5.3, repeat ordered for tomorrow.)
[2021-04-03 10:55] LABS: Ferritin > 2000 ng/mL (26-388)
[2021-04-03] MEDS: Enoxaparin 80 MG/0.8 ML SYR SC ×2 (11:34→21:58)
[2021-04-03] MEDS: levoFLOXacin 750 MG/150 ML BAG 100 MG IVPB (11:35)
--- NOTE | 2021-04-03 11:45 | W.PM.PROGNOT ---
Date of Service Date of service: 04/03/21 Time of Service: 11:00 Assessment and Plan Assessment and plan (1) Pneumonia due to COVID-19 virus: Start date: 04/03/21 Start time: 11:00 Status: Acute Assessment and plan: treat w/ Remdesivir and decadron, vitamin C, vitamin D, zinc, atorvastatin, therapeutic lovenox, continue to encourage use of IS, acapella and proning; Procal 5.3 on admission will trend, repeat in am LFT Ferritin > 2000, crp 7.45, patient not feeling so well today, he did prone for several hours over night, he has been doing IS and acappella Continue combivent QID Changed antibiotics to levaquin from ceftriaxone d/t worsening respiratory status 4 C mortality Score for COVID is 8 points putting him at at intermeddiate risk for in-hospital mortality Will obtain d-dimer today with possible CTA, to r/o PE (2) Hypoxia: Start date: 04/03/21 Start time: 11:00 Status: Acute Assessment and plan: as above (3) Cough: Start date: 04/03/21 Start time: 11:00 Status: Acute Assessment and plan: improving as above. Able to due IS (4) DVT prophylaxis: Start date: 04/03/21 Start time: 11:00 Status: Acute Assessment and plan: subcu enoxaparin (5) Discharge planning issues: Start date: 04/03/21 Start time: 01:00 Status: Acute Assessment and plan: Home when medically ready discussed with Dr. Toledo Subjective Subjective Patient reports: other Interval history since last seen: Patient not doing as well today as yesterday. He did prone for hours yesterday. Coughing up yellow sputum. Oxygen requirements up to 3 L. His ferritin is elevated greater than >2000, CRP 7.45 however on admission he did have procal 5.3, will switch to levaquin IV. Check d-dimer, LFT, echo for Monday. If oxygen needs continue to grow will place on bipap. Currently on lasix, he did have bibasalar rales yesterday. Continues to do acapella and IS. Continue to encourage OOB and pronning. Exam Narrative Exam Narrative: Thin middle-aged white male sitting up in bed in no acute respiratory distress not using accessory respiratory muscles able to speak to me in full paragraphs. seen on camera HEENT is unremarkable Spoke to via phone, he is having coughing that is producing yellow phelgm. More SOB, oxygen requirements greater today. Heart is regular rate rhythm per telemetry Objective Last Vital Signs Temp 36.0 C L 04/03/21 06:06 Pulse 44 L 04/03/21 07:36 Resp 16 04/03/21 06:06 BP 95/61 L 04/03/21 06:06 Pulse Ox 93 04/03/21 06:06 Laboratory Results - last 24 hr 04/01/21 04/01/21 04/03/21 05:30 20:25 07:07 WBC RBC Hgb Hct MCV MCH MCHC RDW Plt Count MPV Immature Gran % Neutrophils % Lymphocytes % Monocytes % Eosinophils % Basophils % Nucleated RBC % Absolute Neutrophils Absolute Lymphocytes Absolute Monocytes Absolute Eosinophils Absolute Basophils Fibrinogen 470 H Sodium 142 Potassium 4.4 Chloride 108 H Carbon Dioxide 26.2 Anion Gap 7.8 BUN 22 H D Creatinine 0.9 Estimated GFR/1.73 m2 >= 60.00 Glucose 129 H Calcium 8.0 L Ferritin > 2000 H C-Reactive Protein 7.45 H Urine Legionella Ag Negative 04/03/21 07:07 WBC 14.30 H D RBC 4.42 Hgb 13.7 Hct 41.4 MCV 93.7 MCH 31.0 MCHC 33.1 RDW 12.0 Plt Count 175 MPV 10.9 Immature Gran % 0.8 Neutrophils % 88.8 Lymphocytes % 4.9 Monocytes % 5.4 Eosinophils % 0.0 Basophils % 0.1 Nucleated RBC % 0 Absolute Neutrophils 12.70 H Absolute Lymphocytes 0.70 L Absolute Monocytes 0.77 Absolute Eosinophils 0.00 Absolute Basophils 0.01 Fibrinogen Sodium Potassium Chloride Carbon Dioxide Anion Gap BUN Creatinine Estimated GFR/1.73 m2 Glucose Calcium Ferritin C-Reactive Protein Urine Legionella Ag
[2021-04-03] MEDS: DOXYCYCLINE 100 MG in Normal Saline 100 ML IVPB ×2 (13:50→23:51)
[2021-04-03 14:10] LABS: D-Dimer 824 ng/mlFEU (<500)
[2021-04-03] MEDS: Atorvastatin 40 MG TAB PO (20:57)
[2021-04-03] MEDS: Pantoprazole 40 MG TABCR PO (20:58)
[2021-04-03] MEDS: Sucralfate 1 GM TAB PO (21:58)
[2021-04-04] VITALS (8 sets, daily range): BP systolic 108–119; BP diastolic 68–80; PULSE 46–91; RESP 17–20; TEMP 36–36.5; O2SAT 93–95
[2021-04-04 07:35] LABS: Abs Immature Grans 0.05 10^3/uL (0.0-0.06); HGB 14.3 g/dL (13.5-17.5); MCH 31.1 pg (27.0-33.0); MCHC 33.3 % (32.0-36.0); MCV 93.5 fL (80-95); MPV 10.6 fL (8.0-11.0); Nucleated RBC 0 %; Platelet Count 244 10^3/uL (130-400); RDW-SD 41.3 fL; WBC 10.07 10^3/uL (4.4-10.8)
[2021-04-04 07:51] LABS: INR 1.1 (0.9-1.1); Prothrombin Time 10.8 sec (9.3-11.0)
[2021-04-04 08:00] LABS: ALT 63 U/L (16-63); AST 52 U/L (15-37); Albumin 2.9 g/dL (3.4-5.0); Alkaline Phosphatase 56 U/L (46-116); Bilirubin, Direct 0.1 mg/dL (0.0-0.2); Bilirubin, Total 0.4 mg/dL (0.2-1.0); Total Protein 6.8 g/dL (6.4-8.2)
[2021-04-04 08:10] LABS: D-Dimer 696 ng/mlFEU (<500)
[2021-04-04] MEDS: Normal Saline Flush 10 ML SYR IVP ×2 (08:10→22:14)
[2021-04-04] MEDS: Ipratropium/Albuterol 4 GM 120 PUFF INH IH ×4 (08:10→20:09)
[2021-04-04] MEDS: Cholecalciferol (Vitamin D3) 1,000 UNIT TAB 2000 UNITS PO (08:11)
[2021-04-04] MEDS: Pantoprazole 40 MG TABCR PO (08:11)
[2021-04-04] MEDS: Furosemide 20 MG TAB PO (08:11)
[2021-04-04] MEDS: Sucralfate 1 GM TAB PO ×2 (08:11→12:03)
[2021-04-04] MEDS: Ascorbic Acid 500 MG TAB 1000 MG PO ×2 (08:11→20:08)
[2021-04-04] MEDS: Zinc Sulfate 220 MG TAB PO (08:11)
[2021-04-04] MEDS: Famotidine 20 MG TAB PO ×2 (08:11→20:08)
[2021-04-04] MEDS: Dexamethasone 10 MG/ML VIAL 6 MG IVP (08:11)
[2021-04-04 08:14] LABS: Absolute Neutrophil Count 8.96 10^3/uL (1.2-6.7); Atypical Lymphocytes % 3; Bands % 3; Procalcitonin 2.2 ng/mL
[2021-04-04 08:15] LABS: Diff Comment Manual Differential; RBC Morphology Normal
[2021-04-04 08:52] LABS: BUN 24 mg/dL (7-18); Calcium 8.3 mg/dL (8.5-10.1); Ferritin 1987 ng/mL (26-388); Glucose 126 mg/dL (74-106)
[2021-04-04 08:53] LABS: Chloride 105 mmol/L (98-107); Sodium 141 mmol/L (136-145)
[2021-04-04] MEDS: Enoxaparin 80 MG/0.8 ML SYR SC ×2 (10:10→22:14)
[2021-04-04] MEDS: DOXYCYCLINE 100 MG in Normal Saline 100 ML IVPB (12:03)
[2021-04-04] MEDS: levoFLOXacin 750 MG/150 ML BAG 100 MG IVPB (13:18)
--- NOTE | 2021-04-04 16:25 | W.PM.PROGNOT ---
Date of Service Date of service: 04/04/21 Time of Service: 16:25 Assessment and Plan Assessment and plan (1) Pneumonia due to COVID-19 virus: Status: Acute Assessment and plan: Continue remdesivir, dexamethasone, therapeutic lovenox, furosemide, atorvastatin. Complicated by bacterial PNA. Treat superimposed bacterial PNA with levofloxacin. D/c doxycycline. Continue IS, acapella and proning; Continue scheduled and prn bronchodilators. (2) Hypoxia: Status: Acute Assessment and plan: Due to above as above as above (3) Cough: Status: Acute Assessment and plan: Add mucinex and tessalon perls. (4) DVT prophylaxis: Status: Acute Assessment and plan: On therapeutic lovenox (5) Discharge planning issues: Status: Acute Assessment and plan: Anticipate discharge home in the next 24-48 hrs Full code. Subjective Subjective Interval history since last seen: Mr Hewitt is now on 2L of O2. He feels a lot better. Denies dizziness, chest pain, endorses less shortness of breath today, denies nausea. Cough is productive of clear sputum with occasional brownish-tinted stuff. We had a long conversation about COVID vaccines, and the patient still feels he needs to do his own research. He is worried about the risk of stroke from the vaccine. Exam Narrative Exam Narrative: General: Pleasant Middle-aged male who is sitting up in a chair, on 2L of O2, midly dyspnea while talking; able to complete 5 word phrases HEENT: EOMI, MMM Heart: RRR, no m/r/g Lungs: faint rhonchi at B bases Abdomen: soft, nontender, nondistended Extremities: no edema BLE's Objective Last Vital Signs Temp 36.4 C L 04/04/21 14:57 Pulse 70 04/04/21 14:57 Resp 18 04/04/21 14:57 BP 110/68 04/04/21 14:57 Pulse Ox 94 04/04/21 14:57 Laboratory Results - last 24 hr 04/04/21 04/04/21 04/04/21 07:10 07:10 07:10 WBC 10.07 RBC 4.60 Hgb 14.3 Hct 43.0 MCV 93.5 MCH 31.1 MCHC 33.3 RDW 12.0 Plt Count 244 MPV 10.6 Immature Gran % See Differential Neutrophils % 86.0 Band Neutrophils % 3 Lymphocytes % 2.0 Atypical Lymphs % 3 Monocytes % 6.0 Eosinophils % 0.0 Basophils % 0.0 Nucleated RBC % 0 Absolute Neutrophils 8.96 H Absolute Lymphocytes 0.50 L Absolute Monocytes 0.60 Absolute Eosinophils 0.00 Absolute Basophils 0.00 RBC Morphology Normal PT INR D-Dimer Sodium 141 Potassium 4.0 Chloride 105 Carbon Dioxide 25.0 Anion Gap 11.0 BUN 24 H Creatinine 1.0 Estimated GFR/1.73 m2 >= 60.00 Glucose 126 H Calcium 8.3 L Ferritin 1987 H Total Bilirubin 0.4 Conjugated Bilirubin 0.1 AST 52 H ALT 63 Alkaline Phosphatase 56 Total Protein 6.8 Albumin 2.9 L Procalcitonin 04/04/21 04/04/21 07:10 07:10 WBC RBC Hgb Hct MCV MCH MCHC RDW Plt Count MPV Immature Gran % Neutrophils % Band Neutrophils % Lymphocytes % Atypical Lymphs % Monocytes % Eosinophils % Basophils % Nucleated RBC % Absolute Neutrophils Absolute Lymphocytes Absolute Monocytes Absolute Eosinophils Absolute Basophils RBC Morphology PT 10.8 INR 1.1 D-Dimer 696 H Sodium Potassium Chloride Carbon Dioxide Anion Gap BUN Creatinine Estimated GFR/1.73 m2 Glucose Calcium Ferritin Total Bilirubin Conjugated Bilirubin AST ALT Alkaline Phosphatase Total Protein Albumin Procalcitonin 2.2
[2021-04-04 16:36] LABS: Streptococcus Pneumoniae Ag, U Negative (Negative)
[2021-04-04] MEDS: Atorvastatin 40 MG TAB PO (20:08)
[2021-04-04] MEDS: Benzonatate 100 MG CAP PO (20:08)
[2021-04-04] MEDS: guaiFENesin 600 MG TABCR PO (20:08)
[2021-04-04 22:57] LABS: Mycoplasma Pneumoniae PCR Negative; Specimen source Sputum
[2021-04-05] VITALS (9 sets, daily range): BP systolic 100–125; BP diastolic 64–76; PULSE 46–86; RESP 18–22; TEMP 36.3–36.6; O2SAT 92–95
[2021-04-05 07:02] LABS: HCT 43.4 % (40.0-50.0); HGB 14.3 g/dL (13.5-17.5); MCH 30.6 pg (27.0-33.0); MCHC 32.9 % (32.0-36.0); MCV 92.9 fL (80-95); MPV 10.6 fL (8.0-11.0); Nucleated RBC 0 %; Platelet Count 261 10^3/uL (130-400); RBC 4.67 10^6/uL (4.36-5.78); RDW-SD 41.2 fL; WBC 10.02 10^3/uL (4.4-10.8)
[2021-04-05 07:19] LABS: ALT 242 U/L (16-63); AST 198 U/L (15-37); Albumin 2.9 g/dL (3.4-5.0); Alkaline Phosphatase 55 U/L (46-116); Anion Gap 7.8 mmol/L (3-11); BUN 22 mg/dL (7-18); Bilirubin, Direct 0.1 mg/dL (0.0-0.2); Bilirubin, Total 0.5 mg/dL (0.2-1.0); C-Reactive Protein 2.21 mg/dL (0.0-0.3); CO2 27.2 mmol/L (21.0-32.0); Calcium 8.7 mg/dL (8.5-10.1); Chloride 106 mmol/L (98-107); Glucose 121 mg/dL (74-106); Magnesium 2.2 mg/dL (1.8-2.4); PHOSPHORUS 3.8 mg/dL (2.6-4.7); Potassium 4.2 mmol/L (3.5-5.1); Sodium 141 mmol/L (136-145); Total Protein 6.7 g/dL (6.4-8.2)
[2021-04-05 07:20] LABS: INR 1.1 (0.9-1.1); Prothrombin Time 11.2 sec (9.3-11.0)
[2021-04-05 07:25] LABS: Absolute Neutrophil Count 7.62 10^3/uL (1.2-6.7); Atypical Lymphocytes % 6; Diff Comment Manual Differential; RBC Morphology Normal
[2021-04-05] MEDS: Dexamethasone 10 MG/ML VIAL 6 MG IVP (07:39)
[2021-04-05] MEDS: Ipratropium/Albuterol 4 GM 120 PUFF INH IH ×4 (07:39→20:24)
[2021-04-05] MEDS: Normal Saline Flush 10 ML SYR IVP ×3 (07:39→12:04)
[2021-04-05 08:02] LABS: D-Dimer 639 ng/mlFEU (<500)
--- NOTE | 2021-04-05 08:25 | PDOC.CMPRO ---
- If Service Date Differs Date of service: 04/05/21 Time of Service: 08:25 Care Management Progress Note S/O: CM spoke with Kash via phone due to covid precautions. Kash shares that he's doing well and has been up independently in his room. Proning bothers his chronic back pain but he's been laying on his side as much as possible. He has been using IS and Acapella as directed. Kash has no needs at this time. He has a phone and TV in his room. A: 50 year old male admitted on 04/01/21 for Covid-19 P: Kash requires close monitoring and treatment for Covid-19 and pneumonia. Anticipate he will discharge home with no new services when medically ready. He will transport via private vehicle with family. He will follow up with discharge plan of care and community providers. CM will support discharge planning needs.
[2021-04-05 08:26] LABS: Ferritin > 2000 ng/mL (26-388)
--- NOTE | 2021-04-05 08:30 | DI.US_ITS ---
APPROVED REPORT EXAM: Comprehensive 2D, Doppler, and color-flow Echocardiogram Patient Location: In-Patient Room/Bed: 217 Indications: Chest pain, SOB, Fever, +Covid Other Information Study Quality: Adequate Conclusion Normal left ventricular wall thickness and chamber size. Estimated ejection fraction is 60%. Wall m otion is normal Normal right ventricular size and systolic function Both atria are normal in size There is no structural or hemodynamically significant valvular disease Wall motion Left Ventricle The left ventricle is normal size. The left ventricular systolic function is normal. The left ventric ular ejection fraction is within the normal range. There is normal left ventricular wall thickness. T here is normal LV segmental wall motion. Left ventricular filling pattern is normal for age. There is no ventricular septal defect visualized. LVEF is 59%. Right Ventricle The right ventricle is normal size. The right ventricular systolic function is normal. Atria The left atrium size is normal. The right atrium size is normal. The interatrial septum is intact wit h no evidence for an atrial septal defect. Aortic Valve The aortic valve is normal in structure. Aortic valve is trileaflet. There is no aortic valvular sten osis. No aortic regurgitation is present. Mitral Valve The mitral valve is normal in structure. No evidence of mitral valve stenosis. Trace mitral regurgita tion. Tricuspid Valve The tricuspid valve is normal in structure. There is no tricuspid valve stenosis. Trace tricuspid reg urgitation. Pulmonic Valve The pulmonary valve is normal in structure. There is no pulmonic valvular stenosis. Trace pulmonic re gurgitation. Great Vessels The aortic root is normal in size. The ascending aorta is normal in size. Aortic arch is not well vis ualized. IVC is normal in size and collapses >50% with inspiration. Pericardium There is no pericardial effusion. 2D Dimensions IVSD d PLAX 0.91 cm M: 0.6-1.2 LV Vol A2C d MOD 160.4 mL LVPW d PLAX 0.92 cm M: 0.6 - 1.2 LV Vol A4C d MOD 124.3 mL LVID d PLAX 5.52 cm M: 4.2 - 5.8 LA vol/ BSA A2C s A-L 42.0 mL/m2 LVDs 3.75 cm M: 2.5 - 4.0 LA vol/ BSA A4C s A-L 23.1 mL/m2 Ao Root d 2.81 cm M: 3.1 - 3.7 LA Vol/ BSA Biplane s A-L 33.3 mL/m2 RA Area A4C 12.66 cm2 LA Area A4C s MOD 16.90 cm2 RA Vol/ BSA A4C s A-L 16.8 mL/m2 LA Area A2C s MOD 24.34 cm2 Ao Asc Diam d 3.03 cm M: 2.6 - 3.4 LV EF A4C MOD 60.3 % LV EF Teichholz 59.6 % LV EF A2C MOD 58.4 % LVEF (Thompson's) 58.91 % M: 52 - 72 LV EF Biplane MOD 58.9 % LV Volume 106.54 mL M: 62 - 150 SV 84.07 mL LV Volume Index 52.74 mL/m2 M: 34 - 74 SV Index 41.47 mL/m2 LV Vol Biplane MOD 142.7 mL FS 32.00 % M-Mode TAPSE 2.53 cm (M/F) >1.7 LV Diastology MV E' medial 0.107 (>0.07 m/s) E/A Ratio 1.0 LV E/e MED 4.70 (<14) MV E Vmax 0.50 (0.4-1.3 m/s) MV E' lateral 0.159 (>0.1 m/s) MV A Vmax 0.50 (0.4-1.3 m/s) LV E/e LAT 3.15 (<14) MV E/A Ratio 1.00 MV E/E' medial 4.73 MV E/E' lateral 3.16 Aortic Valve LVOT Area 3.85 cm2 AoV Area Vmax 3.78 cm2 LVOT Vmax 1.12 m/s AoV Area/ BSA (Vmax) 1.86 cm2/m2 LVOT Mean Wily. 0.67 m/s MO[place]STO Mean Wily. 3.32 cm2 LVOT Peak Grad 5.0 mmHg [place]STO Mean Wily. Index 1.64 cm2/m2 LVOT Mean Grad 2.2 mmHg LVOT VTI 0.233 m LVOT Diam s 2.20 cm AoV Vmax 1.14 m/s Velocity Ratio 0.98 AoV Mean Wily. 0.78 m/s AoV Peak Grad 5.2 mmHg LVOT SV 89.76 mL AoV Mean Grad 2.7 mmHg AoV VTI 0.227 m AoV Area VTI 3.95 cm2 AoV Area/ BSA (VTI) 1.95 cm/m2 Mitral Valve MV DT 294 (160-240 msec) MV PHT 85 msec MV Area PHT 2.58 cm2 MV VTI 0.232 m MV Area VTI 3.86 (4.0-6.0 cm2) Pulmonary Valve PV Vmax 1.02 (0.5-1.5 m/s) RVOT Peak Gr. 3.20 mmHg PV Peak Grad 4.1 mmHg RVOT Mean Gr. 1.40 mmHg PV Mean Grad 2.0 mmHg RVOT VTI 0.183 m PV VTI 0.211 m RVOT Vmax 0.89 m/s
[2021-04-05] MEDS: Cholecalciferol (Vitamin D3) 1,000 UNIT TAB 2000 UNITS PO (09:05)
[2021-04-05] MEDS: Famotidine 20 MG TAB PO ×2 (09:05→20:24)
[2021-04-05] MEDS: Ascorbic Acid 500 MG TAB 1000 MG PO ×2 (09:05→20:24)
[2021-04-05] MEDS: Benzonatate 100 MG CAP PO ×3 (09:06→20:24)
[2021-04-05] MEDS: Zinc Sulfate 220 MG TAB PO (09:06)
[2021-04-05] MEDS: Furosemide 20 MG TAB PO (09:06)
[2021-04-05] MEDS: guaiFENesin 600 MG TABCR PO ×2 (09:06→20:24)
[2021-04-05 09:09] LABS: Creatine Kinase 53 U/L (39-308)
[2021-04-05 10:13] LABS: HIV-1/2 Ag & Ab Screen Negative (Negative)
[2021-04-05] MEDS: Enoxaparin 80 MG/0.8 ML SYR SC ×2 (10:13→20:27)
[2021-04-05 10:43] LABS: HBs Antibody, Qual Negative (See Note); HBs Antibody, Quant <3.1 mIU/mL (See Note); Hepatitis B Core Antibody Negative (Negative); Hepatitis B surface Ag Negative (Negative); Hepatitis C Ab w Rflx HCV PCR Negative (Negative)
[2021-04-05] MEDS: levoFLOXacin 750 MG/150 ML BAG 100 MG IVPB (12:05)
--- NOTE | 2021-04-05 16:58 | PGE_ITS ---
Date of Service Date of service: 04/05/21 Time of Service: 16:50 Assessment and Plan Assessment and plan (1) Pneumonia due to COVID-19 virus: Status: Acute Assessment and plan: Hold remdesivir due to transaminitis. D/c atorvastatin. Continue dexamethasone, therapeutic lovenox, furosemide. Complicated by bacterial PNA. Treat superimposed bacterial PNA with levofloxacin. Continue IS, acapella and proning; Continue scheduled and prn bronchodilators. (2) Hypoxia: Status: Acute Assessment and plan: Due to above as above as above (3) Cough: Status: Acute Assessment and plan: Better. Continue mucinex and tessalon perls. (4) DVT prophylaxis: Status: Acute Assessment and plan: On therapeutic lovenox (5) Discharge planning issues: Status: Acute Assessment and plan: Anticipate discharge home in the next 24-48 hrs Full code. Subjective Subjective Interval history since last seen: Much much better. Better energy level - feels like himself. Can take a deep breath. Cough is better - very little sputum, mostly clear, sometimes a little brown. No SOB at rest. No dizziness, no CP, no nausea/diarrhea. Decided to get vaccinated. Exam Narrative Exam Narrative: Patient's visit was conducted over the phone today due to his stability and diagnosis of COVID-19. He did sound very mildly dyspneic, but was able to complete sentences. Good spe ech pattern/content. Objective Last Vital Signs Temp 36.3 C L 04/05/21 15:46 Pulse 67 04/05/21 15:46 Resp 18 04/05/21 15:46 BP 115/67 04/05/21 15:46 Pulse Ox 93 04/05/21 15:46 Laboratory Results - last 24 hr 04/01/21 04/02/21 04/02/21 20:25 05:50 06:20 WBC RBC Hgb Hct MCV MCH MCHC RDW Plt Count MPV Immature Gran % Neutrophils % Lymphocytes % Atypical Lymphs % Monocytes % Eosinophils % Basophils % Nucleated RBC % Absolute Neutrophils Absolute Lymphocytes Absolute Monocytes Absolute Eosinophils Absolute Basophils RBC Morphology PT INR D-Dimer Sodium Potassium Chloride Carbon Dioxide Anion Gap BUN Creatinine Estimated GFR/1.73 m2 Glucose Calcium Phosphorus Magnesium Ferritin Total Bilirubin Conjugated Bilirubin AST ALT Alkaline Phosphatase Creatine Kinase C-Reactive Protein Total Protein Albumin Hep Bs Antigen Negative Hep Bs Antibody Negative Hep Bs Antibody, Quant <3.1 Hep B Core Total Ab Negative Hepatitis C Antibody Negative HIV 1&2 Ag/Ab, 4th Gen Negative M. pneumoniae Source M. pneumoniae (PCR) Ur Strep pneumoniae Ag Negative 04/02/21 04/05/21 04/05/21 10:20 05:35 06:20 WBC RBC Hgb Hct MCV MCH MCHC RDW Plt Count MPV Immature Gran % Neutrophils % Lymphocytes % Atypical Lymphs % Monocytes % Eosinophils % Basophils % Nucleated RBC % Absolute Neutrophils Absolute Lymphocytes Absolute Monocytes Absolute Eosinophils Absolute Basophils RBC Morphology PT INR D-Dimer Sodium 141 Potassium 4.2 Chloride 106 Carbon Dioxide 27.2 Anion Gap 7.8 BUN 22 H Creatinine 1.0 Estimated GFR/1.73 m2 >= 60.00 Glucose 121 H Calcium 8.7 Phosphorus Cancelled 3.8 Magnesium 2.2 Ferritin > 2000 H Total Bilirubin Cancelled 0.5 Conjugated Bilirubin Cancelled 0.1 AST Cancelled 198 H ALT Cancelled 242 H Alkaline Phosphatase Cancelled 55 Creatine Kinase 53 C-Reactive Protein 2.21 H Total Protein Cancelled 6.7 Albumin Cancelled 2.9 L Hep Bs Antigen Hep Bs Antibody Hep Bs Antibody, Quant Hep B Core Total Ab Hepatitis C Antibody HIV 1&2 Ag/Ab, 4th Gen M. pneumoniae Source Sputum M. pneumoniae (PCR) Negative Ur Strep pneumoniae Ag 04/05/21 04/05/21 06:20 06:20 WBC 10.02 RBC 4.67 Hgb 14.3 Hct 43.4 MCV 92.9 MCH 30.6 MCHC 32.9 RDW 12.0 Plt Count 261 MPV 10.6 Immature Gran % 0.0 Neutrophils % 76.0 Lymphocytes % 6.0 Atypical Lymphs % 6 Monocytes % 12.0 Eosinophils % 0.0 Basophils % 0.0 Nucleated RBC % 0 Absolute Neutrophils 7.62 H Absolute Lymphocytes 1.20 Absolute Monocytes 1.20 H Absolute Eosinophils 0.00 Absolute Basophils 0.00 RBC Morphology Normal PT 11.2 H INR 1.1 D-Dimer 639 H Sodium Potassium Chloride Carbon Dioxide Anion Gap BUN Creatinine Estimated GFR/1.73 m2 Glucose Calcium Phosphorus Magnesium Ferritin Total Bilirubin Conjugated Bilirubin AST ALT Alkaline Phosphatase Creatine Kinase C-Reactive Protein Total Protein Albumin Hep Bs Antigen Hep Bs Antibody Hep Bs Antibody, Quant Hep B Core Total Ab Hepatitis C Antibody HIV 1&2 Ag/Ab, 4th Gen M. pneumoniae Source M. pneumoniae (PCR) Ur Strep pneumoniae Ag
[2021-04-06] VITALS (9 sets, daily range): BP systolic 104–132; BP diastolic 71–82; PULSE 49–90; RESP 18–20; TEMP 36.1–36.8; O2SAT 92–95
[2021-04-06 07:09] LABS: Abs Immature Grans 0.15 10^3/uL (0.0-0.06); HCT 44.5 % (40.0-50.0); HGB 14.8 g/dL (13.5-17.5); MCH 30.7 pg (27.0-33.0); MCHC 33.3 % (32.0-36.0); MCV 92.3 fL (80-95); MPV 10.5 fL (8.0-11.0); Nucleated RBC 0 %; Platelet Count 297 10^3/uL (130-400); RBC 4.82 10^6/uL (4.36-5.78); RDW 11.8 % (11.8-14.1); RDW-SD 39.8 fL; WBC 10.47 10^3/uL (4.4-10.8)
[2021-04-06 07:30] LABS: ALT 297 U/L (16-63); AST 127 U/L (15-37); Albumin 3.1 g/dL (3.4-5.0); Alkaline Phosphatase 57 U/L (46-116); BUN 22 mg/dL (7-18); Bilirubin, Direct 0.2 mg/dL (0.0-0.2); Bilirubin, Total 0.5 mg/dL (0.2-1.0); C-Reactive Protein 1.23 mg/dL (0.0-0.3); CREATININE 0.9 mg/dL (0.70-1.30); Calcium 8.6 mg/dL (8.5-10.1); Chloride 104 mmol/L (98-107); Glucose 113 mg/dL (74-106); Magnesium 2.2 mg/dL (1.8-2.4); PHOSPHORUS 3.7 mg/dL (2.6-4.7); Potassium 4.1 mmol/L (3.5-5.1); Sodium 140 mmol/L (136-145); Total Protein 6.8 g/dL (6.4-8.2)
[2021-04-06 08:04] LABS: Absolute Lymphocyte Count 2.09 10^3/uL (1.2-3.4); Absolute Monocyte Count 0.31 10^3/uL (0.1-0.8); Absolute Neutrophil Count 8.06 10^3/uL (1.2-6.7); Atypical Lymphocytes % 13; Bands % 0
[2021-04-06 08:05] LABS: Diff Comment Manual Differential; RBC Morphology Normal
[2021-04-06 08:10] LABS: D-Dimer 520 ng/mlFEU (<500)
[2021-04-06] MEDS: Normal Saline Flush 10 ML SYR IVP ×2 (08:24→12:09)
[2021-04-06] MEDS: Dexamethasone 10 MG/ML VIAL 6 MG IVP (08:24)
[2021-04-06 08:25] LABS: INR 1.1 (0.9-1.1); Prothrombin Time 11.1 sec (9.3-11.0)
[2021-04-06] MEDS: guaiFENesin 600 MG TABCR PO ×2 (08:27→20:48)
[2021-04-06] MEDS: Zinc Sulfate 220 MG TAB PO (08:27)
[2021-04-06] MEDS: Cholecalciferol (Vitamin D3) 1,000 UNIT TAB 2000 UNITS PO (08:27)
[2021-04-06] MEDS: Ascorbic Acid 500 MG TAB 1000 MG PO ×2 (08:27→20:48)
[2021-04-06] MEDS: Benzonatate 100 MG CAP PO ×3 (08:27→20:48)
[2021-04-06] MEDS: Furosemide 20 MG TAB PO (08:28)
[2021-04-06] MEDS: Famotidine 20 MG TAB PO ×2 (08:28→20:48)
[2021-04-06] MEDS: Ipratropium/Albuterol 4 GM 120 PUFF INH IH ×4 (08:28→20:48)
[2021-04-06 09:12] LABS: Procalcitonin 0.4 ng/mL
[2021-04-06 09:13] LABS: Ferritin > 2000 ng/mL (26-388)
[2021-04-06] MEDS: Enoxaparin 80 MG/0.8 ML SYR SC ×2 (10:31→23:10)
[2021-04-06] MEDS: levoFLOXacin 750 MG/150 ML BAG 100 MG IVPB (12:08)
[2021-04-06] MEDS: Normal Saline 500 ML 30 ML IV (12:08)
--- NOTE | 2021-04-06 16:12 | PGE_ITS ---
Date of Service Date of service: 04/06/21 Time of Service: 16:17 Assessment and Plan Assessment and plan (1) Pneumonia due to COVID-19 virus: Status: Acute Assessment and plan: Hold remdesivir due to transaminitis. Continue dexamethasone, therapeutic lovenox, furosemide. Complicated by bacterial PNA. Treat superimposed bacterial PNA with levofloxacin. Procalcitonin is better - continue fo rnow. Continue IS, acapella and proning; Continue scheduled and prn bronchodilators. (2) Hypoxia: Status: Acute Assessment and plan: Due to above as above as above Check exercise oximetry in am with plans for possible discharge home tomorrow. (3) Cough: Status: Acute Assessment and plan: Better. Continue mucinex and tessalon perls. (4) Transaminitis: Status: Acute Assessment and plan: Etiology unclear. Possibly due to COVID-19 itself, atorvastatin, or remdesivir. Both hepatotoxic meds d/c'ed. LFTs better. Will need to be followed up as outpatient. (5) DVT prophylaxis: Status: Acute Assessment and plan: On therapeutic lovenox (6) Discharge planning issues: Status: Acute Assessment and plan: Anticipate discharge home tomorrow Full code. Subjective Subjective Interval history since last seen: I feel better today! I feel sharp, my energy is back, I am able to walk around the room, I am doing breathing exercises. Mr Zaragoza is now on 1L of O2 by [place]. Denies dizziness, chest pain, shortness of breath, nausea. We talked about him doing a walking oxygen test in am to see if he can be discharged home tomorrow - he is excited. Exam Narrative Exam Narrative: Patient's visit was conducted over the phone today due to his st ability and diagnosis of COVID-19. No dyspnea/tachypnea heard today. He sounds much better. Appropriate speech pattern/content, speaking in lengthy sentences, in great spirits. Objective Last Vital Signs Temp 36.2 C L 04/06/21 12:05 Pulse 68 04/06/21 15:39 Resp 18 04/06/21 12:05 BP 104/72 04/06/21 12:05 Pulse Ox 94 04/06/21 13:40 Laboratory Results - last 24 hr 04/06/21 04/06/21 04/06/21 06:30 06:30 06:30 WBC 10.47 RBC 4.82 Hgb 14.8 Hct 44.5 MCV 92.3 MCH 30.7 MCHC 33.3 RDW 11.8 Plt Count 297 MPV 10.5 Immature Gran % 0.0 Neutrophils % 77.0 Band Neutrophils % 0 Lymphocytes % 7.0 Atypical Lymphs % 13 Monocytes % 3.0 Eosinophils % 0.0 Basophils % 0.0 Nucleated RBC % 0 Absolute Neutrophils 8.06 H Absolute Lymphocytes 2.09 Absolute Monocytes 0.31 Absolute Eosinophils 0.00 Absolute Basophils 0.00 RBC Morphology Normal PT INR D-Dimer Sodium 140 Potassium 4.1 Chloride 104 Carbon Dioxide 28.0 Anion Gap 8.0 BUN 22 H Creatinine 0.9 Estimated GFR/1.73 m2 >= 60.00 Glucose 113 H Calcium 8.6 Phosphorus 3.7 Magnesium 2.2 Ferritin > 2000 H Total Bilirubin 0.5 Conjugated Bilirubin 0.2 AST 127 H ALT 297 H Alkaline Phosphatase 57 C-Reactive Protein 1.23 H Total Protein 6.8 Albumin 3.1 L Procalcitonin 0.4 04/06/21 06:30 WBC RBC Hgb Hct MCV MCH MCHC RDW Plt Count MPV Immature Gran % Neutrophils % Band Neutrophils % Lymphocytes % Atypical Lymphs % Monocytes % Eosinophils % Basophils % Nucleated RBC % Absolute Neutrophils Absolute Lymphocytes Absolute Monocytes Absolute Eosinophils Absolute Basophils RBC Morphology PT 11.1 H INR 1.1 D-Dimer 520 H Sodium Potassium Chloride Carbon Dioxide Anion Gap BUN Creatinine Estimated GFR/1.73 m2 Glucose Calcium Phosphorus Magnesium Ferritin Total Bilirubin Conjugated Bilirubin AST ALT Alkaline Phosphatase C-Reactive Protein Total Protein Albumin Procalcitonin
--- NOTE | 2021-04-06 17:45 | PDOC.CMPRO ---
Care Management Progress Note S/O: Kash remains inpatient, CM continues to follow. A: 50 year old male admitted on 04/01/21 for Covid-19 P: Kash continues to require close monitoring and treatment for Covid-19 and pneumonia. Anticipate he will discharge home with no new services when medically ready. He will transport via private vehicle with family. He will follow up with discharge plan of care and community providers. CM will support discharge planning needs.
[2021-04-07] VITALS (7 sets, daily range): BP systolic 108–111; BP diastolic 72–74; PULSE 42–117; RESP 16–20; TEMP 36.3–36.4; O2SAT 91–96
[2021-04-07] MEDS: Normal Saline Flush 10 ML SYR IVP (08:16)
[2021-04-07] MEDS: Dexamethasone 10 MG/ML VIAL 6 MG IVP (08:16)
[2021-04-07] MEDS: Cholecalciferol (Vitamin D3) 1,000 UNIT TAB 2000 UNITS PO (08:16)
[2021-04-07] MEDS: Ipratropium/Albuterol 4 GM 120 PUFF INH IH ×2 (08:17→15:02)
[2021-04-07] MEDS: Famotidine 20 MG TAB PO (08:17)
[2021-04-07] MEDS: Zinc Sulfate 220 MG TAB PO (08:17)
[2021-04-07] MEDS: guaiFENesin 600 MG TABCR PO (08:17)
[2021-04-07] MEDS: Ascorbic Acid 500 MG TAB 1000 MG PO (08:17)
[2021-04-07] MEDS: Benzonatate 100 MG CAP PO (08:17)
[2021-04-07] MEDS: Furosemide 20 MG TAB PO (08:17)
[2021-04-07] MEDS: Enoxaparin 80 MG/0.8 ML SYR SC (10:42)
[2021-04-07] MEDS: levoFLOXacin 750 MG/150 ML BAG 100 MG IVPB (12:23)
--- NOTE | 2021-04-07 13:59 | W.PM.DS.N ---
Date of service: 04/07/21 Time of Service: 13:59 DS: Diagnosis Discharge Diagnosis (1) Pneumonia due to COVID-19 virus: Status: Acute (2) Secondary bacterial pneumonia: Status: Acute (3) Hypoxia: Status: Acute (4) Transaminitis: Status: Acute Discharge Plan Disposition Patient Disposition: HOME Condition: Improving Discharge Details Reason For Visit: COVID-19 Pneumonia Admit Date/Time: 04/01/21 19:37 Admit Provider: Andres Hummel Attending Provider: Andres Hummel Primary Care Provider: Ciro Epps Hospital Course Hospital Course: Mr Zaragoza is a 50 year old male with no known PMHx who was admitted to [facility] hospitalist service on 04/01/21 with COVID-19 complicated by secondary bacterial pneumonia and hypoxia. The patient desaturated to 87% on RA in the ED and oxygen supplementation of 2L to saturate >88%. The patient was treated with dexamethasone, remdesivir, therapeutic anticoagulation, and empiric antibiotics as he had evidence of a bacterial superinfection with a positive procalcitonin. He was also placed on a statin. The patient's oxygen requirement increased to 4L of O2 by [facility] on 04/04/20, but got significantly better with initiation of furosemide as he had evidence of mild fluid overload. His d-dimer at the time of worsening hypoxia was not high enough to warrant a workup for a PE. The patient was noted to develop transaminitis. Hepatitis panel was negative. It was unclear if this was due to COVID-19 itself, statin, or remdesivir, but both statin and remdesivir were stopped and transaminitis improved. The patient is now on room air, at rest and with activity, and feels well enough to go home. He is being prescribed a steroid taper, three more days of antibiotics, antitussives, and prn albuterol inhaler. He is medically ready for discharge home today with self-monitoring of his pulse ox'es and instructions to return to the hospital should the O2 sats fall and be sustained <88%. He will need outpatient LFTs rechecked in 2 weeks to ensure resolution of transaminitis. Care for patient as well as completion of his discharge summary on day of discharge took 40 minutes. Home Meds and New Rx's Prescriptions: New famotidine 20 mg Tablet 20 mg PO BID Qty: 60 RF: 0 ascorbic acid (vitamin C) [Vitamin C] 500 mg Tablet 1,000 mg PO BID Qty: 60 RF: 0 benzonatate 100 mg Capsule 100 mg PO TID PRN PRN (Reason: cough) Qty: 30 RF: 0 furosemide 20 mg Tablet 20 mg PO DAILY Qty: 3 RF: 0 albuterol sulfate [Ventolin HFA] 90 mcg/actuation Hfa Aerosol Inhaler 2 puff inhalation Q4H PRN PRNQty: 0 RF: 0 cholecalciferol (vitamin D3) 25 mcg (1,000 unit) Tablet 2,000 units PO DAILY Qty: 30 RF: 0 guaifenesin [Mucinex] 600 mg Tablet Extended Release 12hr 600 mg PO BID PRN PRN (Reason: cough) Qty: 30 RF: 0 prednisone 10 mg tablet See Rx Instructions .ROUTE .COMPLEX Qty: 40 RF: 0 levofloxacin 750 mg tablet 750 mg PO DAILY Qty: 3 RF: 0 Continued ibuprofen 200 mg Tablet 400 mg PO PRN PRNRF: 0 acetaminophen 325 mg Capsule 650 mg PO PRN PRNRF: 0 Discontinued amoxicillin-pot clavulanate [Augmentin] 875-125 mg tablet 1 tab PO BID Qty: 14 RF: 0 Discharge Instructions Instructions: Benzonatate (By mouth), Famotidine (By mouth), Furosemide (By mouth), Prednisone (By mouth), Guaifenesin (By mouth), Levofloxacin (By mouth), Bacterial Pneumonia (DC), COVID-19 (Coronavirus Disease 2019) (DC) Additional Instructions: Finish your prednisone taper as prescribed. Finish your levofloxacin (antibiotic) as prescribed. Monitor your pulse ox several times a day. Return to the hospital if you notice that your pulse ox is 88% or less and stays there, if you notice worsening of your symptoms, if you develop chest pain or bleeding. Follow up with your PCP in 1-2 weeks. Continue to self-isolate for the next 3-4 days. Referrals: Ciro Epps NP [Primary Care Provider] - Activity:: Activity as Tolerated Equipment/Supplies:: pulse oximeter Diet:: As Tolerated Discharge Orders Discharge Orders: Discharge Order (Routine); Ordered 04/07/21 Ordered By: Samara Toledo Other Ambulatory Orders: Liver Panel (Routine) Timeframe: 2 Weeks Facility: [facility] - Location: Laboratory Outpatient Ordered By: Samara Toledo DS: Summary Time Spent with Patient providing and/or coordinating discharge services: Greater than 30 minutes Status at Discharge Functional status at discharge: independent ambulation Overall status at discharge: patient is progressing back to baseline Mental Status: mental status grossly normal Speech and Movement: speech and movement normal Mood: congruent mood Affect: normal affect Exam Narrative Exam Narrative: Patient's visit was conducted over the phone today due to his stability and diagnosis of COVID-19. No dyspnea/tachypnea, sounds well. Appropriate speech pattern/content, speaking in lengthy sentences, in great spirits. Psych Mental Status: mental status grossly normal Speech and Movement: speech and movement normal Mood: congruent mood Affect: normal affect DS: Data Vitals/I&O Vitals and I&O: Vital Signs Temperature 36.4 C L 04/07/21 12:42 Temperature Source Tympanic 04/07/21 12:42 Pulse 85 04/07/21 12:42 Pulse Rhythm Regular 04/07/21 08:00 Pulse 87 04/01/21 20:30 Respiratory Rate 20 04/07/21 12:42 Respiratory Effort Non-Labored 04/07/21 08:00 Respiratory Depth Normal 04/07/21 08:00 Respiratory Pattern Normal 04/07/21 08:00 Blood Pressure 111/72 04/07/21 12:42 Blood Pressure Mean 73 04/01/21 20:00 Blood Pressure Position Sitting 04/01/21 16:47 Pulse Oximetry 96 04/07/21 12:42 Oxygen Delivery Method Room Air 04/07/21 12:42 Oxygen Flow Rate 0 04/07/21 12:42 Pain Level 0 04/07/21 08:15 Comment 04/06/21 08:26 Intake & Output 04/06/21 04/07/21 04/07/21 23:59 11:59 23:59 Intake Total 672 / 1032 350 / 350 Balance 672 / 1032 350 / 350 Intake: IV 372 / 382 Oral 300 / 650 350 / 350 Other: Urine Color Yellow Urine Appearance Clear Clear Comment Patient has been independent in the room and to the bathoom. Patient denies GI/ issues. Patient is independent to the bathroom. Patient denies GI/ issues. Voiding Methods Toilet Data Completed and Pending Completed studies during hospitalization [Text1]: CXR: Bilateral airspace opacities. The findings are consistent with pneumonia. Atypical/viral pneumonia should be considered. COVID-19 pneumonia may have this appearance. echo: Normal left ventricular wall thickness and chamber size. Estimated ejection fraction is 60%. Wall motion is normal Normal right ventricular size and systolic function Both atria are normal in size There is no structural or hemodynamically significant valvular disease Labs on day of discharge: Preliminary micro results at discharge 04/04/21 07:10 Blood Culture - Preliminary Blood NO GROWTH 72 HOURS 04/04/21 06:55 Blood Culture - Preliminary Blood NO GROWTH 72 HOURS PFSH All Active Problems (Updated 04/07/21 @ 14:00 by Samara Toledo MD) Secondary bacterial pneumonia (Acute) Transaminitis (Acute) Discharge planning issues (Acute) DVT prophylaxis (Acute) Pneumonia due to COVID-19 virus (Acute) Hypoxia (Acute) Requires supplemental oxygen (Acute) Cough (Acute) Upper respiratory infection (Acute) Pneumonia due to COVID-19 virus (Acute) Plantar fasciitis, bilateral (Acute) Lower back pain (Acute) Angina bullosa hemorrhagica (Chronic) Surgical History KNEE SURGERY (~2003) Family History Mother Essential hypertension Hyperlipidemia Neoplasm Breast Father Essential hypertension Hyperlipidemia Multiple myeloma Sister Substance abuse Grandfather Essential hypertension Heart disease Hyperlipidemia Social History Smoking/Tobacco Use Status: Former Tobacco Use Smoking risk assessment performed?: Yes Alcohol Intake: never Drug use: Never Substance use type: does not use Do you feel safe at home: Yes Do you feel safe in your relationship?: Yes
--- NOTE | 2021-04-07 16:47 | CMDISCH_ITS ---
- If Service Date Differs Date of service: 04/07/21 Time of Service: 16:47 LACE Index Scoring Tool - Questions: Length of Stay (in days): 4 - 6 Acuity (Admit via E.D.?): Yes E.D. Visits: 2 - Answers: Total Score: 9 Risk of Readmission: Low Risk Care Management Discharge Reason for Hospitalization: Covid-19 pneumonia Discharge Plan: Discharge home via private vehicle with family. Follow discharge plan of care which includes continuing to self isolate for 3-4 days and take me dications as prescribed. Follow up with PCP in 1-2 weeks, sooner if needed. No new services are needed at this time. Patient/Family Education Needs: Review discharge instructions, medications, limitations and plan to follow up with PCP.
== END 2021-04-07 15:27 | disposition home or self-care (01) | DRG 177 ==
LOC: ER 19:58 → MS 20:41
PROVIDERS: Internal Medicine; Nurse Practitioner Family; Admitting Provider Internal Medicine; Emergency Provider Physician Assistant; PCP Nurse Practitioner Family; Visit Provider Internal Medicine
DX: U07.1 COVID-19 (principal); J12.82 Pneumonia due to coronavirus disease 2019; J15.9 Unspecified bacterial pneumonia; R74.01 Elevation of levels of liver transaminase levels; R09.02 Hypoxemia
CPT/HCPCS: 36415; 80048; 80053; 80076; 82550; 84145; 85384; 86704; 86706; 86803; 86850; 86900; 86901; 87040; 87340; 87389; 87449; 93005; 94618; 94640; 96361; 96365; 96372; 96375; 99284; 71045; 82728; 83605; 83615; 83735; 84100; 84484; 85025; 85379; 85610; 85730; 86140; 87070; 87205; 87581; 87899; 93010; 93306; 94664; 94667; 94668; 99222; 99231; 99232; 99233; 99239; 99285; J0131; J0248; J0456; J0696; J1100; J1650; J1885; J1956; J2405; J2930; J3490; J7620

== ENCOUNTER 2022-08-10 03:13 | Outpatient (CLI) | payer OTHER, SELFPAY ==
[2022-08-10 14:55] LABS: ALT 35 U/L (16-63); AST 25 U/L (15-37); Albumin 4.1 g/dL (3.4-5.0); Alkaline Phosphatase 66 U/L (46-116); Anion Gap 6.4 mmol/L (3-11); BUN 28 mg/dL (7-18); Bilirubin, Total 0.3 mg/dL (0.2-1.0); CO2 27.6 mmol/L (21.0-32.0); CREATININE 1.1 mg/dL (0.70-1.30); Chloride 105 mmol/L (98-107); Estimated GFR 80.77 (mL/min/1.73m2); Glucose 120 mg/dL (74-106); Potassium 4.1 mmol/L (3.5-5.1); Sodium 139 mmol/L (136-145); Total Protein 7.5 g/dL (6.4-8.2)
== END 2022-08-10 03:14 | disposition home or self-care (01) ==
LOC: LBO 03:13
PROVIDERS: PCP Nurse Practitioner Family; Visit Provider Nurse Practitioner Family
DX: R74.8 Abnormal levels of other serum enzymes (principal); R73.03 Prediabetes
CPT/HCPCS: 36415; 80053; 83036

== ENCOUNTER 2023-09-21 02:01 | Outpatient (CLI) | payer OTHER, SELFPAY ==
[2023-09-21 16:04] LABS: Hemoglobin A1C 5.9 % (<5.7)
[2023-09-21 16:36] LABS: Calculated LDL 122 mg/dL (<100); Cholesterol 186 mg/dL (<200); HDL Cholesterol 57 mg/dL (40-60); Triglyceride 39 mg/dL (<150)
== END 2023-09-21 02:02 | disposition home or self-care (01) ==
LOC: LBO 02:01
PROVIDERS: PCP Nurse Practitioner Family; Visit Provider Nurse Practitioner Family
DX: R73.03 Prediabetes (principal); Z13.220 Encounter for screening for lipoid disorders
CPT/HCPCS: 36415; 80061; 83036

== ENCOUNTER 2024-04-05 13:47 | Emergency (ER) | payer OTHER, SELFPAY ==
[2024-04-05 13:50] VITALS: BP 146/83; PULSE 74; RESP 10; TEMP 36.7; O2SAT 96
--- NOTE | 2024-04-05 14:05 | ED.GENADUL_ITS ---
Discharge Plan Disposition Patient Disposition: Home Discharge Details Clinical Impression: Laceration of right hand Primary Care Provider: Ciro Epps ED Provider: Opal Martinez Home Meds and New Rx's Prescriptions: New cephalexin 500 mg capsule 500 mg PO BID 5 Days Qty: 10 0RF No Action ibuprofen 200 mg Tablet 400 mg PO PRN PRN ascorbic acid (vitamin C) [Vitamin C] 500 mg Tablet 1,000 mg PO BID Qty: 60 0RF cholecalciferol (vitamin D3) 25 mcg (1,000 unit) Tablet 2,000 units PO DAILY Qty: 30 0RF Discharge Instructions Instructions: Laceration Repair With Stitches ED Additional Instructions: Your stitches will begin to follow-up in 5 to 7 days and do not need to be removed Keep wound clean with soap and water. Pat dry. Do not scrub the area Starting tomorrow you would like antibiotic ointment You can leave open to air but recommend covering while working Return with redness, pain or other concerns for infection HPI General Date/Time Provider Initiated Documentation: 04/05/24 14:00 . Limitations to Documentation: no limitations . Information obtained by: patient . HPI Narrative: 53-year-old gentleman without significant past medical history presents for evaluation of right hand laceration. Patient was at work and had an open razor blade in his pocket. He scraped his hand against the razor blade. He is right- hand dominant. Tetanus is up-to-date. He reports that there was a fair amount of bleeding that has resolved with a Band-Aid. He denies any difficulty moving his fingers, denies any numbness or tingling Related Data Home Medications ?Medication ?Instructions ?Recorded ?Confirmed ibuprofen 200 mg tablet 400 mg PO PRN PRN 04/01/21 04/05/24 ascorbic acid (vitamin C) 500 mg 1,000 mg (2 x 500 mg) PO BID #60 04/07/21 04/05/24 tablet (Vitamin C) tabs cholecalciferol (vitamin D3) 25 2,000 units PO DAILY #30 tabs 04/07/21 04/05/24 mcg (1,000 unit) tablet cephalexin 500 mg capsule 500 mg PO BID 5 days #10 caps 04/05/24 Previous Rx's ?Medication ?Instructions ?Recorded ascorbic acid (vitamin C) 500 mg 1,000 mg (2 x 500 mg) PO BID #60 04/07/21 tablet (Vitamin C) tabs cholecalciferol (vitamin D3) 25 2,000 units PO DAILY #30 tabs 04/07/21 mcg (1,000 unit) tablet cephalexin 500 mg capsule 500 mg PO BID 5 days #10 caps 04/05/24 Allergies Allergy/AdvReac Type Severity Reaction Status Date / Time shrimp Allergy Severe numbness Verified 04/05/24 13:53 in tongue and lips, nausea General Stated Complaint: Laceration MONSERRAT: 4 Exam Narrative Exam Narrative: Review of Systems: All systems reviewed & are unremarkable except as noted in HPI and below Well-developed, no acute distress NCAT Unlabored respiratory effort Right hand with 3 cm laceration on the dorsal aspect between the thumb and first finger not actively bleeding there is subcutaneous fat noted, in the wound bed there is fascial sheath appreciated without disruption Sensation intact in all distributions, good strength and full range of motion in all joint movements Course Vital Signs Vital signs: Vital Signs Temperature 36.7 C 04/05/24 13:50 Pulse 74 04/05/24 13:50 Respiratory Rate 10 L 04/05/24 13:50 Blood Pressure 146/83 H 04/05/24 13:50 Pulse Oximetry 96 04/05/24 13:50 Temperature 36.7 C 04/05/24 13:50 Temperature Source Oral 04/05/24 13:50 Pulse 74 04/05/24 13:50 Respiratory Rate 10 L 04/05/24 13:50 Blood Pressure 146/83 H 04/05/24 13:50 Blood Pressure Position Sitting 04/05/24 13:50 Pulse Oximetry 96 04/05/24 13:50 Oxygen Delivery Method Room Air 04/05/24 13:50 Oxygen Flow Rate 0 04/05/24 13:50 Pain Level 1 04/05/24 13:50 Procedure Laceration Laceration 1: Site: hand Side (If applicable): right Description: linear Depth: involves muscle layer Local anesthetic: LET(lidocaine epinephrine tetracaine) Pre-repair:: wound explored, irrigated extensively and deep structures intact Skin layer closed with: chromic gut Size (cm): 5-0 Number of sutures:: 8 Technique: simple, interrupted Complications: None Medical Decision Making Emergent evaluation of right hand laceration. Tetanus is up-to-date. No evidence of bony injury. Wound is clean. No overt neurovascular tendinous damage appreciated given his physical examination. Analgesia provided with topical let. Wound irrigated extensively and all structures appear to be intact. Laceration repaired without complication. Wound care discussed with the patient. Keflex prescription provided for empiric coverage. Return precautions advised. Quality:SDOH Health Related Social Needs: No Data to Display PFSH All Active Problems (Updated 04/05/24 @ 14:42 by Opal Martinez MD) Laceration of right hand (Acute) Buttock pain (Acute) Scalp itch (Acute) Piriformis syndrome of left side (Acute) Elevated liver enzymes (Acute) Prediabetes (Acute) Angina bullosa hemorrhagica (Chronic) Medical History Lower back pain Surgical History KNEE SURGERY (~2003) Family History Mother Essential hypertension Hyperlipidemia Neoplasm Breast Father Essential hypertension Hyperlipidemia Multiple myeloma Sister Substance abuse Grandfather Essential hypertension Heart disease Hyperlipidemia Social History Smoking/Tobacco Use Status: Former Tobacco Use tobacco type: cigarettes Quit Date: 08/26/95 Tobacco: How many years used: 10 Second Hand Exposure: Yes Smoking risk assessment performed?: Yes Alcohol Intake: former Drug use: Current Sobriety Substance use type: does not use Housing: house Do you feel safe at home: Yes Do you feel safe in your relationship?: Yes
[2024-04-05] MEDS: Lidocaine/Epinephri/Tetracaine Topical Gel 3 ML TP (14:12)
== END 2024-04-05 14:50 | disposition home or self-care (01) ==
PROVIDERS: Emergency Provider Emergency Medicine; PCP Nurse Practitioner Family
DX: S61.411A Laceration without foreign body of right hand, initial encounter (principal); W26.8XXA Contact with other sharp object(s), not elsewhere classified, initial encounter; Y99.0 Civilian activity done for income or pay
CPT/HCPCS: 12002